=== PATIENT | female | born 1955 | race Caucasian/White ===

== ENCOUNTER 2022-05-17 11:05 | Inpatient (IN) | payer OTHER ==
[2022-05-17] MEDS ORDERED: FUROSEMIDE 20 MG/ 2ML VIAL ONE ×2 (13:12→21:02)
[2022-05-17] MEDS ORDERED: MORPHINE 2 MG/ML SYR ONE (13:12)
[2022-05-17] MEDS ORDERED: ONDANSETRON 4 MG/2 ML VIAL ONE (13:12)
[2022-05-17] MEDS ORDERED: NITROGLYCERIN/D5W 50 MG/250 ML BTL IV ONE (13:13)
[2022-05-17] MEDS ORDERED: ASPIRIN 81 MG CHEWABLE TABLET ONE (13:13)
--- NOTE | 2022-05-17 13:18 | RAD REPORT ---
EXAM DESCRIPTION: RAD - Chest Single View - 05/17/2022 12:55 pm CLINICAL HISTORY: CONGESTION COMPARISON: None TECHNIQUE: AP portable chest image was obtained 05/17/2022 12:55 pm . FINDINGS: Baseline study shows low lung volumes. Large bilateral pleural effusions are present. No f ocal dense consolidation in the upper lung [place]. Patient has bibasilar atelectasis due to the pleur al effusions but could have mass or infiltrate that is obscured by the large pleural fluid collection s. Heart size is unknown, obscured by the bilateral lower lung field opacification. No pneumothorax. No acute bony abnormality seen. No acute aortic findings suspected. IMPRESSION: Large bilateral pleural effusions with lung base atelectasis. Lung base mass or infiltra te can be masked. Vasculature is prominent. CHF/volume overload would be a primary consideration.
[2022-05-17 13:22] LABS: Protime INR 1.1
[2022-05-17 13:23] LABS: Absolute Lymphocytes (CBC) 1.7 K/uL (0.7-4.9); Hematocrit 48.3 % (36.0-45.0); Lymphocytes % 18.1 % (15.3-44.8); MPV 7.4 fL (7.6-11.3); RBC Red Blood Cell Count 5.25 M/uL (3.86-4.86)
[2022-05-17 13:27] LABS: SARS-CoV-2 Antigen Rapid Res Negative (Negative)
[2022-05-17 13:33] LABS: Urine Blood Trace-intact (Negative); Urine Glucose Trace (Negative); Urine Protein 2+ (Negative); Urine pH 6.5 (5.0-7.0)
[2022-05-17 13:42] LABS: Albumin 3.7 g/dL (3.4-5.0); Bilirubin Direct 0.2 mg/dL (0-0.2); Bilirubin Total 0.7 mg/dL (0.2-1.0); Magnesium 1.9 mg/dL (1.6-2.4); Potassium 4.2 mmol/L (3.5-5.1); Protein, Total 8.3 g/dL (6.4-8.2); Troponin High Sensitivity 38.4 pg/mL (<58.9)
--- NOTE | 2022-05-17 14:15 | ER ---
Nurse's Notes [facility] Name: Namrata Steinberg Age: 66 yrs Sex: Female : 1955 Arrival Date: 05/17/2022 Time: 11:06 Bed 25 Private MD: Diagnosis: Hypertensive emergency;Unspecified combined systolic (congestive) and diastolic (congestive) heart failure Presentation: 05/17 12:26 Chief complaint: Patient states: she hasn't been able to sleep in approx 30 hours. ap3 patient also complains of nausea and shortness of breath. patient denies being around anyone sick. patient is also having some swelling in her taylor lower exterminites. Coronavirus screen: Client presents with at least one sign or symptom that may indicate coronavirus-19. Ebola Screen: No symptoms or risks identified at this time. Initial Sepsis Screen: Does the patient meet any 2 criteria? HR > 90 bpm. Does the patient have a suspected source of infection? No. Patient's initial sepsis screen is negative. Risk Assessment: Do you want to hurt yourself or someone else? Patient reports no desire to harm self or others. Onset of symptoms was May 15, 2022. 12:26 Method Of Arrival: Ambulatory ap3 12:26 Acuity: SANDOVAL 2 ap3 Triage Assessment: 12:31 General: Appears distressed, Behavior is calm, cooperative. Pain:. Respiratory: Reports ap3 shortness of breath Onset: The symptoms/episode began/occurred gradually, the patient has moderate shortness of breath. 12:32 Musculoskeletal: Swelling present in right foot and left foot. ap3 Historical: - Allergies: 12:30 No Known Allergies; ap3 - Home Meds: 12:30 None [Active]; ap3 - PMHx: 12:30 Hypertensive disorder; ap3 - Immunization history:: Client reports having NOT received the Covid vaccine. - Social history:: Smoking status: Patient/guardian denies using tobacco. Screenin:45 Abuse screen: Denies threats or abuse. Denies injuries from another. Nutritional hb screening: No deficits noted. Tuberculosis screening: No symptoms or risk factors identified. Fall Risk Total Piper Fall Scale indicates Low Risk Score (25-44 pts). Fall prevention measures have been instituted. Side Rails Up X 2 Frequent Obs/Assesments occuring Family Present and informed to notify staff if they need to leave bedside As available Patient and Family Educated on Fall Prevention Program and strategies. Assessment: 13:02 General: Appears distressed, Behavior is cooperative, anxious, restless. Neuro: Level hb of Consciousness is awake, alert, obeys commands, Oriented to person, place, time, situation. Cardiovascular: Patient's skin is warm and dry. Edema 3+ BLEs Rhythm is sinus tachycardia. Respiratory: Reports shortness of breath at rest on exertion Respiratory effort is labored, Respiratory pattern is tachypnea. GI: No signs and/or symptoms were reported involving the gastrointestinal system. : No signs and/or symptoms were reported regarding the genitourinary system. EENT: No signs and/or symptoms were reported regarding the EENT system. Derm: Skin is pink, warm \T\ dry. Musculoskeletal: No signs and/or symptoms reported regarding the musculoskeletal system. 14:38 Reassessment: Patient and/or family updated on plan of care and expected duration. Pain hb level reassessed. Patient is alert, oriented x 3, equal unlabored respirations, skin warm/dry/pink. 15:33 Reassessment: Patient appears in no apparent distress at this time. No changes from hb previously documented assessment. Patient and/or family updated on plan of care and expected duration. Pain level reassessed. Patient states symptoms have improved. 16:53 Reassessment: Patient appears in no apparent distress at this time. Patient and/or hb family updated on plan of care and expected duration. Pain level reassessed. Patient is alert, oriented x 3, equal unlabored respirations, skin warm/dry/pink. 17:45 Reassessment: Patient appears in no apparent distress at this time. Patient and/or hb family updated on plan of care and expected duration. Pain level reassessed. Patient is alert, oriented x 3, equal unlabored respirations, skin warm/dry/pink. 18:32 Reassessment: Patient appears in no apparent distress at this time. Patient and/or hb family updated on plan of care and expected duration. Pain level reassessed. Patient is alert, oriented x 3, equal unlabored respirations, skin warm/dry/pink. Patient denies pain at this time. Patient states symptoms have improved. Vital Signs: 12:26 BP 206 / 107; Pulse 105; Resp 18; Temp 97.9; Pulse Ox 85% on R/A; Weight 77.11 kg; ap3 13:30 BP 181 / 104; Pulse 104; Resp 19; Pulse Ox 98% on 3 lpm NC; hb 14:00 BP 168 / 92; Pulse 102; Resp 25; Pulse Ox 95% on 3 lpm NC; hb 14:16 BP 160 / 85; Pulse 94; Resp 26; Pulse Ox 96% on 3 lpm NC; hb 14:20 BP 146 / 81; Pulse 94; Resp 26; Pulse Ox 96% on 3 lpm NC; hb 14:37 BP 142 / 74; Pulse 90; Resp 19; Pulse Ox 94% on 3 lpm NC; hb 14:38 BP 142 / 74; Pulse 89; hb 15:07 BP 115 / 67; Pulse 87; Resp 17; Pulse Ox 96% on 3 lpm NC; hb 15:33 BP 148 / 86; Pulse 81; Resp 25; Pulse Ox 97% on 3 lpm NC; hb 15:53 BP 164 / 82; Pulse 81; Resp 19; Pulse Ox 97% on 3 lpm NC; hb 16:15 BP 156 / 79; Pulse 78; Resp 22; Pulse Ox 95% on 3 lpm NC; hb 16:45 BP 159 / 84; Pulse 92; Resp 23; Pulse Ox 93% on 3 lpm NC; hb 17:15 BP 168 / 95; Pulse 94; Resp 23; Pulse Ox 96% on 3 lpm NC; hb 17:45 BP 169 / 86; Pulse 95; Resp 23; Pulse Ox 95% on 3 lpm NC; hb 18:30 BP 157 / 81; Pulse 86; Resp 24; Pulse Ox 96% on 3 lpm NC; hb 19:00 BP 155 / 83; Pulse 95; Resp 23; Pulse Ox 95% on 3 lpm NC; hb 12:26 patient was then placed on 3liters nasal canula to bring her oxygen up. patient's SpO2 ap3 recovered to 98% ED Course: 11:06 Patient arrived in ED. as 12:12 Meghan Ferrell FNP-C is PHCP. snw 12:12 Rodolfo Pabon MD is Attending Physician. snw 12:28 Triage completed. ap3 12:57 XRAY Chest (1 view) In Process Unspecified. EDMS 13:10 Regine Villatoro, RN is Primary Nurse. hb 13:15 Inserted saline lock: 20 gauge in right antecubital area, using aseptic technique. hb Blood collected. 13:19 Inserted saline lock: 22 gauge in left hand, using aseptic technique. hb 13:30 Velasquez cath inserted, using sterile technique, 16 Fr., by ED staff, balloon inflated, to hb gravity drainage, urine specimen collected. 13:34 Basic Metabolic Panel Sent. hb 13:34 LFT's Sent. hb 13:34 Magnesium Sent. hb 13:34 NT PRO-BNP Sent. hb 13:34 Troponin HS Sent. hb 14:12 Davon Smith MD is Hospitalizing Provider. snw 14:18 Patient has correct armband on for positive identification. hb 19:36 No provider procedures requiring assistance completed. Patient admitted, IV remains in hb place. Administered Medications: 13:10 Drug: Lasix (furosemide) 20 mg Route: IVP; Site: right antecubital; hb 13:10 Drug: morphine 2 mg Route: IVP; Infused Over: 4 mins; Site: right antecubital; hb 13:10 Drug: Zofran (Ondansetron) 2 mg Route: IVP; Site: right antecubital; hb 13:11 Drug: Nitro Drip 5 mcg/min - (Nitroglycerin 50 mg, D5W 250 ml) Route: IV; Rate: 2 hb mcg/min; Site: left hand; 14:00 Follow up: Rate change 15 mcg/min hb 14:37 Follow up: BP 142 / 74; Pulse 90 bpm; Resp 19 bpm; Pulse Ox 94% 3 lpm Nasal Cannula; hb Rate change 10 mcg/min 15:10 Follow up: Rate change 5 mcg/min hb 13:34 Drug: Aspirin Chewable Tablet 324 mg Route: PO; hb 18:38 Drug: Lovenox (enoxaparin) 40 mg Route: Sub-Q; Site: abdomen; hb Medication: 14:18 VIS not applicable for this client. hb Output: 14:28 Urine: 1200ml (Velasquez); Total: 1200ml. hb Outcome: 14:14 Decision to Hospitalize by Provider. snw 19:36 Admitted to ER Hold. [facility] hb 19:36 Condition: stable 19:36 Instructed on the need for admit, Demonstrated understanding of instructions. 05/18 16:28 Patient left the ED. iw Signatures: Dispatcher Nevigo, Meghan, CHIEF OF [employer]-C CHIEF OF [employer]-Csnw Radha Ziegler as Amy Beaver RN RN Regine Villatoro RN RN Britt Peterson RN RN ap3 Corrections: (The following items were deleted from the chart) 05/17 12:32 12:26 Chief complaint: Patient states: she hasn't been able to sleep in approx 30 ap3 hours. patient also complains of nausea and shortness of breath. patient denies being around anyone sick ap3
--- NOTE | 2022-05-17 14:15 | EDPHYS ---
Physician Documentation [facility] Name: Namrata Steinberg Age: 66 yrs Sex: Female : 1955 Arrival Date: 05/17/2022 Time: 11:06 Bed 25 Private MD: ED Physician Rodolfo Pabon HPI: 05/17 12:40 This 66 yrs old Female presents to ER via Ambulatory with complaints of Shortness Of snw Breath, Feet Swelling, Nausea. 12:40 The patient has shortness of breath at rest. Onset: The symptoms/episode began/occurred snw suddenly, 2 day(s) ago, and became worse. Duration: The symptoms are continuous, and are steadily getting worse. The patient's shortness of breath is aggravated by exertion, light activity, supine position, is alleviated by nothing. Associated signs and symptoms: Pertinent positives: swelling. Severity of symptoms: At their worst the symptoms were severe in the emergency department the symptoms are unchanged. The patient has not experienced similar symptoms in the past. The patient has not recently seen a physician, and does not have an established primary care provider, just moved [facility]. pt with no medical history, no meds. Historical: - Allergies: 12:30 No Known Allergies; ap3 - Home Meds: 12:30 None [Active]; ap3 - PMHx: 12:30 Hypertensive disorder; ap3 - Immunization history:: Client reports having NOT received the Covid vaccine. - Social history:: Smoking status: Patient/guardian denies using tobacco. ROS: 14:16 Eyes: Negative for injury, pain, redness, and discharge, ENT: Negative for injury, snw pain, and discharge, Neck: Negative for injury, pain, and swelling, Cardiovascular: Negative for chest pain, palpitations, and edema. 14:16 Back: Negative for injury and pain, : Negative for injury, bleeding, discharge, and swelling, MS/Extremity: Negative for injury and deformity, lower extremity edema Skin: Negative for injury, rash, and discoloration, Neuro: Negative for headache, weakness, numbness, tingling, and seizure. 14:16 Constitutional: Positive for fatigue, poor PO intake, insomnia, shortness of breath. 14:16 Respiratory: Positive for shortness of breath. 14:16 Abdomen/GI: Positive for nausea, abdominal distension. Exam: 12:39 Constitutional: This is a well developed, well nourished patient who is awake, alert, snw and in no acute distress. Head/Face: Normocephalic, atraumatic. Eyes: Pupils equal round and reactive to light, extra-ocular motions intact. Lids and lashes normal. Conjunctiva and sclera are non-icteric and not injected. Cornea within normal limits. Periorbital areas with no swelling, redness, or edema. ENT: Nares patent. No nasal discharge, no septal abnormalities noted. Tympanic membranes are normal and external auditory canals are clear. Oropharynx with no redness, swelling, or masses, exudates, or evidence of obstruction, uvula midline. Mucous membranes moist. Neck: Trachea midline, no thyromegaly or masses palpated, and no cervical lymphadenopathy. Supple, full range of motion without nuchal rigidity, or vertebral point tenderness. No Meningismus. Chest/axilla: Normal chest wall appearance and motion. Nontender with no deformity. No lesions are appreciated. 12:39 Back: No spinal tenderness. No costovertebral tenderness. Full range of motion. Skin: Warm, dry with normal turgor. Normal color with no rashes, no lesions, and no evidence of cellulitis. MS/ Extremity: Pulses equal, no cyanosis. Neurovascular intact. Full, normal range of motion. Neuro: Awake and alert, GCS 15, oriented to person, place, time, and situation. Cranial nerves II-XII grossly intact. Motor strength 5/5 in all extremities. Sensory grossly intact. Cerebellar exam normal. Normal gait. Psych: Awake, alert, with orientation to person, place and time. Behavior, mood, and affect are within normal limits. 12:39 Cardiovascular: Rate: tachycardic, Rhythm: regular, Pulses: no pulse deficits are appreciated, Edema: 3+ edema to level of left ankle, left foot, left toes, right ankle, right foot and right toes. 12:39 Respiratory: mild respiratory distress is noted, Respirations: shallow respirations, tachypnea, Breath sounds: rales, that are mild, are located in both bases. 12:39 Abdomen/GI: Inspection: distension, Bowel sounds: diminished, in all quadrants, Palpation: mild abdominal tenderness, in the umbilical area. Vital Signs: 12:26 BP 206 / 107; Pulse 105; Resp 18; Temp 97.9; Pulse Ox 85% on R/A; Weight 77.11 kg; ap3 13:30 BP 181 / 104; Pulse 104; Resp 19; Pulse Ox 98% on 3 lpm NC; hb 14:00 BP 168 / 92; Pulse 102; Resp 25; Pulse Ox 95% on 3 lpm NC; hb 14:16 BP 160 / 85; Pulse 94; Resp 26; Pulse Ox 96% on 3 lpm NC; hb 14:20 BP 146 / 81; Pulse 94; Resp 26; Pulse Ox 96% on 3 lpm NC; hb 14:37 BP 142 / 74; Pulse 90; Resp 19; Pulse Ox 94% on 3 lpm NC; hb 14:38 BP 142 / 74; Pulse 89; hb 15:07 BP 115 / 67; Pulse 87; Resp 17; Pulse Ox 96% on 3 lpm NC; hb 15:33 BP 148 / 86; Pulse 81; Resp 25; Pulse Ox 97% on 3 lpm NC; hb 15:53 BP 164 / 82; Pulse 81; Resp 19; Pulse Ox 97% on 3 lpm NC; hb 16:15 BP 156 / 79; Pulse 78; Resp 22; Pulse Ox 95% on 3 lpm NC; hb 16:45 BP 159 / 84; Pulse 92; Resp 23; Pulse Ox 93% on 3 lpm NC; hb 17:15 BP 168 / 95; Pulse 94; Resp 23; Pulse Ox 96% on 3 lpm NC; hb 17:45 BP 169 / 86; Pulse 95; Resp 23; Pulse Ox 95% on 3 lpm NC; hb 18:30 BP 157 / 81; Pulse 86; Resp 24; Pulse Ox 96% on 3 lpm NC; hb 19:00 BP 155 / 83; Pulse 95; Resp 23; Pulse Ox 95% on 3 lpm NC; hb 12:26 patient was then placed on 3liters nasal canula to bring her oxygen up. patient's SpO2 ap3 recovered to 98% MDM: 12:29 Patient medically screened. snw 14:15 Data reviewed: vital signs, nurses notes, lab test result(s), EKG, radiologic studies. snw Response to treatment: the patient's symptoms have mildly improved after treatment. Physician consultation: Davon Smith MD was contacted at 14:15, and will see patient shortly. ED course: will increase nitro drip to 5mcg/min. 05/17 12:38 Order name: Basic Metabolic Panel; Complete Time: 13:43 snw 05/17 12:38 Order name: CBC with Diff; Complete Time: 13:25 snw 05/17 12:38 Order name: LFT's; Complete Time: 13:43 snw 05/17 12:38 Order name: Magnesium; Complete Time: 13:43 snw 05/17 12:38 Order name: NT PRO-BNP; Complete Time: 13:43 snw 05/17 12:38 Order name: PT-INR; Complete Time: 13:22 snw 05/17 12:38 Order name: Troponin HS; Complete Time: 13:43 snw 05/17 12:38 Order name: SARS RAPID; Complete Time: 13:30 snw 05/17 13:33 Order name: Urine Dipstick-Ancillary; Complete Time: 13:33 EDMS 05/17 15:10 Order name: NT PRO-BNP; Complete Time: 07:48 EDMS 05/17 15:10 Order name: T4 Free; Complete Time: 07:48 EDMS 05/17 15:10 Order name: Thyroid Stimulating Hormone; Complete Time: 07:48 EDMS 05/17 15:10 Order name: Basic Metabolic Panel EDMS 05/17 15:10 Order name: Basic Metabolic Panel EDMS 05/17 15:10 Order name: CBC with Automated Diff EDMS 05/17 15:10 Order name: CBC with Automated Diff; Complete Time: 07:48 EDMS 05/17 15:10 Order name: Comprehensive Metabolic Panel EDMS 05/17 15:10 Order name: Comprehensive Metabolic Panel; Complete Time: 07:48 EDMS 05/17 15:10 Order name: Creatine Phosphokinase EDMS 05/17 15:10 Order name: Creatine Phosphokinase EDMS 05/17 15:12 Order name: Creatine Phosphokinase; Complete Time: 07:48 EDMS 05/17 15:12 Order name: Creatine Phosphokinase; Complete Time: 07:48 EDMS 05/17 15:12 Order name: Lipid Profile EDMS 05/17 15:12 Order name: Lipid Profile; Complete Time: 07:48 EDMS 05/17 15:12 Order name: Magnesium EDMS 05/17 15:12 Order name: Magnesium; Complete Time: 07:48 EDMS 05/17 15:12 Order name: Phosphorus EDMS 05/17 15:12 Order name: Phosphorus; Complete Time: 07:48 EDMS 05/17 15:12 Order name: Protime (+INR) EDMS 05/17 15:12 Order name: Protime (+INR); Complete Time: 07:48 EDMS 05/17 12:38 Order name: XRAY Chest (1 view); Complete Time: 13:21 snw 05/17 12:38 Order name: EKG; Complete Time: 12:38 snw 05/17 12:38 Order name: Cardiac monitoring; Complete Time: 12:43 snw 05/17 12:38 Order name: EKG - Nurse/Tech; Complete Time: 13:34 snw 05/17 12:38 Order name: IV Saline Lock; Complete Time: 13:34 snw 05/17 12:38 Order name: Labs collected and sent; Complete Time: 13:34 snw 05/17 12:38 Order name: O2 Per Protocol; Complete Time: 12:43 snw 05/17 12:38 Order name: O2 Sat Monitoring; Complete Time: 12:43 snw 05/17 12:38 Order name: Echo w/ Doppler snw 05/17 12:38 Order name: Velasquez; Complete Time: 13:33 snw 05/17 14:18 Order name: Misc. Order: please increase NTG drip to 5mcg/min; Complete Time: 14:34 snw 05/17 15:10 Order name: CONS Physician Consult EDMS 05/17 15:10 Order name: Heart Healthy EDMS 05/17 15:12 Order name: PTT, Activated Partial Thromb EDMS 05/17 15:12 Order name: PTT, Activated Partial Thromb; Complete Time: 07:48 EDMS 05/17 19:27 Order name: Troponin High Sensitivity; Complete Time: 19:30 EDMS 05/18 07:24 Order name: Troponin High Sensitivity; Complete Time: 07:48 EDMS 05/18 08:43 Order name: RAD; Complete Time: 08:43 EDMS Administered Medications: 13:10 Drug: Lasix (furosemide) 20 mg Route: IVP; Site: right antecubital; hb 13:10 Drug: morphine 2 mg Route: IVP; Infused Over: 4 mins; Site: right antecubital; hb 13:10 Drug: Zofran (Ondansetron) 2 mg Route: IVP; Site: right antecubital; hb 13:11 Drug: Nitro Drip 5 mcg/min - (Nitroglycerin 50 mg, D5W 250 ml) Route: IV; Rate: 2 hb mcg/min; Site: left hand; 14:00 Follow up: Rate change 15 mcg/min hb 14:37 Follow up: BP 142 / 74; Pulse 90 bpm; Resp 19 bpm; Pulse Ox 94% 3 lpm Nasal Cannula; hb Rate change 10 mcg/min 15:10 Follow up: Rate change 5 mcg/min hb 13:34 Drug: Aspirin Chewable Tablet 324 mg Route: PO; hb 18:38 Drug: Lovenox (enoxaparin) 40 mg Route: Sub-Q; Site: abdomen; hb Disposition: 20:30 Critical Care:. snw 05/18 17:28 Co-signature as Attending Physician, Rodolfo Pabon MD I agree with the assessment and rt plan of care. Disposition Summary: 05/17/22 14:14 Hospitalization Ordered Hospitalization Status: Inpatient Admission snw Provider: Davon Smith snw Condition: Serious snw Problem: new snw Symptoms: are unchanged snw Bed/Room Type: Standard snw Location: Telemetry/MedSurg (Inpatient)(05/18/22 15:17) Room Assignment: 230(05/18/22 15:17) Diagnosis - Hypertensive emergency snw - Unspecified combined systolic (congestive) and diastolic (congestive) heart failure snw Forms: - Medication Reconciliation Form snw - SBAR form snw Critical care time excluding procedures: 05/17 20:30 Critical care time: Bedside Care: 15 minutes, Consultation: 15 minutes, Family snw Intervention: 10 minutes. Total time: 40 minutes Signatures: Dispatcher [employer] Meghan Alberts FNP-C BEHAVIORAL HEALTH TECH-Csnw Mirtha Portillo RN RN cg Baxter, Heather, RN RN hb Prokisch, Amanda, RN RN ap3 Botello, Elizabeth eb [place]king[place], Ryan, MD MD rt Corrections: (The following items were deleted from the chart) 19:21 14:14 Intensive Care Unit snw cg 19:21 14:14 snw cg 05/18 15:17 05/17 19:21 [facility] ER HOLD cg eb 05/18 15:17 05/17 19:21 ERHOLD- cg eb
[2022-05-17] MEDS ORDERED: ONDANSETRON 4 MG/2 ML VIAL IV PRN (15:00)
[2022-05-17] MEDS ORDERED: NITROGLYCERIN/D5W 50 MG/250 ML BTL IV SCH (15:00)
[2022-05-17] MEDS: ENOXAPARIN 40 MG/0.4 ML SQ SCH (16:00)
[2022-05-17] MEDS: FUROSEMIDE 20 MG/ 2ML VIAL IV SCH (17:00)
--- NOTE | 2022-05-17 18:00 | P.HP ---
Certification for Inpatient Patient admitted to: Inpatient With expected LOS: >2 Midnights Practitioner: I am a practitioner with admitting privileges, knowledge of patient current condition, hospital course, and medical plan of care. Services: Services provided to patient in accordance with Admission requirements found in Title 42 Section 412.3 of the Code of Federal Regulations Patient History Date of Service: 05/17/22 Reason for admission: HTN, pulm edema History of Present Illness: 66yo F, PMH: HTN Presents to ED due to ~2 days of progressively worsening shortness of breath. Associated with leg edema, orthopnea, dyspnea on exertion. Denies chest pain, fever, nausea/vomiting. No recent illness, no prior cardiac history. She was diagnosed with HTN and prescribed medication ~8yrs ago and stopped taking it on her own. Has not seen a physician in 6 years. In the ED, she was noted to be in respiratory distress, hypoxic, CXR: significant b/l pulmonary edema, hypertensive to 200/100, and 2+ b/l lower extremity edema. She was started on a nitro drip and given 20mg IV lasix, with improvement of her BP and 2+ liters of urine out already. She reports feeling better. Allergies No Known Allergies Allergy (Unverified 05/17/22 14:57) Home Medications: NK [No Home Meds] 05/17/22 - Past Medical/Surgical History -: HTN Past Surgical History: Patient denies surgical history - Family History Mother -: Hypertension, Diabetes - Social History Smoking Status: Former smoker Alcohol use: Yes Place of Residence: Home Review of Systems 10-point ROS is otherwise unremarkable Respiratory: Shortness of Breath, SOB with Excertion Cardiovascular: Orthopnea, Edema Gastrointestinal: Distention Physical Examination - Physical Exam General: Alert, Oriented x3, Mild distress HEENT: EOMI, Sclerae nonicteric Neck: Supple, No LAD Respiratory: Diminished, Crackles/rales Cardiovascular: Edema (2+) Gastrointestinal: Soft and benign, Non-distended, No tenderness Musculoskeletal: No erythema, No tenderness Integumentary: No rashes, No significant lesion Neurological: Normal speech, Normal strength at 5/5 x4 extr, Normal affect Urinary: Velasquez catheter (placed in ED) - Studies Laboratory Data (last 24 hrs) 05/17/22 13:07: PT 12.1, INR 1.10 05/17/22 13:07: WBC 9.10, Hgb 16.1 H, Hct 48.3 H, Plt Count 264 05/17/22 13:07: Sodium 136, Potassium 4.2, BUN 16, Creatinine 0.79, Glucose 225 H, Magnesium 1.9, Total Bilirubin 0.7, AST 20, ALT 33, Alkaline Phosphatase 90 Assessment and Plan - Advance Directives Does patient have a Living Will: No Does patient have a Durable POA for Healthcare: No Physician Review Additional Text: Problem List Malignant hypertension with pulmonary edema h/o HTN b/l pulm edema/effusions on CXR BP up to 200/100, continue nitro drip diuresed >3L urine with 20mg IV lasix, continue at 20mg BID monitor electrolytes admit to ICU for close monitoring / nitro drip Cardiology consulted echo ordered obtained in ED already denies recent chest pain / pressure, no palpitations trend troponin suspect uncontrolled HTN lead to flash pulm edema; r/o [place] VTE: lovenox Code: DNR Dispo: home, ~3-4 days Time Spent Managing Pts Care (In Minutes): 70
[2022-05-17] MEDS ORDERED: ENOXAPARIN 40 MG/0.4 ML SQ ONE (18:39)
[2022-05-17 19:39] VITALS: BMI 26.5
[2022-05-18 07:06] LABS: Absolute Lymphocytes (CBC) 1.5 K/uL (0.7-4.9); Hematocrit 42.8 % (36.0-45.0); Lymphocytes % 21.1 % (15.3-44.8); MCV 91.7 fL (80-100); MPV 7.1 fL (7.6-11.3); RBC Red Blood Cell Count 4.67 M/uL (3.86-4.86)
[2022-05-18 07:20] LABS: Protime INR 1.11
[2022-05-18 07:31] LABS: Albumin 3.3 g/dL (3.4-5.0); Bilirubin Total 0.9 mg/dL (0.2-1.0); Magnesium 1.9 mg/dL (1.6-2.4); Phosphorus 3.9 mg/dL (2.5-4.9); Protein, Total 7.5 g/dL (6.4-8.2); Thyroid Stimulating Hormone 5.04 uIU/mL (0.358-3.740)
--- NOTE | 2022-05-18 08:42 | RAD REPORT ---
EXAM DESCRIPTION: RAD - Chest Single View - 05/18/2022 8:34 am CLINICAL HISTORY: f/u pulm edema/effusions COMPARISON: <Comparisons> FINDINGS: Lines: None. Lungs: Basilar airspace disease. Pleural: Layering bilateral pleural effusions better likely moderate in size. Cardiac: Cardiomegaly. Mediastinum: Within normal limits. Bones: No acute fractures. Other: None IMPRESSION: Moderate bilateral pleural effusions and likely underlying atelectasis. This may be seco ndary to pulmonary edema.
[2022-05-18] MEDS ORDERED: FUROSEMIDE 20 MG/ 2ML VIAL ONE (08:43)
[2022-05-18] MEDS: FUROSEMIDE 20 MG/ 2ML VIAL IV SCH ×2 (08:45→17:00)
[2022-05-18] MEDS: ENOXAPARIN 40 MG/0.4 ML SQ SCH (08:46)
[2022-05-18] MEDS ORDERED: ENOXAPARIN 40 MG/0.4 ML SQ ONE (08:55)
[2022-05-18] MEDS: lisinopriL 10 MG TAB PO SCH (14:30)
[2022-05-18] MEDS ORDERED: FUROSEMIDE 20 MG/ 2ML VIAL IV ONE (17:42)
[2022-05-18] MEDS ORDERED: HYDRALAZINE HCL 20 MG/ML VIAL IV PRN (17:42)
[2022-05-18] MEDS: AMLODIPINE 5 MG TAB PO SCH (17:45)
--- NOTE | 2022-05-18 19:02 | RAD REPORT ---
EXAM DESCRIPTION: CT - Thorax Wo Con - 05/18/2022 6:40 pm CLINICAL HISTORY: eval pleural effusions COMPARISON: <Comparisons> FINDINGS: Chest Wall: No suspicious thyroid nodules or pathologic lymphadenopathy. Lungs: Atelectasis as a result of the effusions. Chronic scarring present within the lingula and righ t middle lobe. Pleura: Moderate right greater than left pleural effusions. Mediastinum/sae: No pathologic lymphadenopathy. Pulmonary arteries/Aorta: Limited evaluation without contrast. No aortic aneurysm. Heart: No significant pericardial effusion. Mild cardiomegaly. Mild coronary artery calcifications. Upper abdomen: No acute abnormality. Bones: No acute abnormality. All CT scans are performed using dose optimization technique as appropriate and may include automated exposure control or mA/KV adjustment according to patient size. IMPRESSION: Moderate right greater than left pleural effusions and underlying atelectasis. No other acute process identified.
--- NOTE | 2022-05-18 21:49 | P.PN ---
Date of Service: 05/18/22 Subjective: slight improvement in breathing still requiring oxygen supplementation improvement of swelling pablo remains in place, 3+L out ROS: A complete review of systems was performed and is negative except as mentioned above Physical Exam: Gen: NAD, AOx3 HEENT: normal conjunctiva, sclera anicteric CV: regular rate & rhythm, 1+ b/l lower extremity edema Pulm: mild labored respirations on 2L NC, b/l crackles, diminished at bases bilaterally Abd: soft, non-tender, non-distended Skin: no rashes, no lesions Neuro: normal speech, normal affect, moves all extremities pablo in place vitals reviewed Problem List Malignant hypertension with pulmonary edema and effusions h/o HTN b/l pulm edema/effusions on CXR initially placed on nitro drip due to BP 200/100 diuresed >3L urine with 20mg IV lasix off nitro drip since ~2 am 05/18 increase lasix to 40mg BID monitor electrolytes / renal function downgrade to telemetry Cardiology consulted will likely need ischemic eval prior to discharge echo ordered obtained in ED already denies recent chest pain / pressure, no palpitations trend troponin suspect uncontrolled HTN lead to flash pulm edema; r/o [place] likely new onset CHF VTE: lovenox Code: DNR Dispo: home, ~3 days Time Spent Managing Pts Care (In Minutes): 35
--- NOTE | 2022-05-18 22:02 | CON ---
Date of Consultation: 05/18/2022 Reason For Consultation: Shortness of breath and lower extremity edema. History Of Present Illness: This 66-year-old female presented to the emergency room with significant shortness of breath, lower extremity edema, and orthopnea. Denies having any chest pain. Said she will have some lower extremity swelling; however, it has become significantly worse lately and starte d to have the difficulty breathing. Her only past medical history is hypertension. No other medical history. Denies having any chest pain. Past Medical History: Hypertension. Medications: Refer to reconciliation sheet for detailed list. Allergies: NO KNOWN DRUG ALLERGIES. Family History: No premature coronary artery disease or cancer. Social History: She does not smoke, but she drinks a mixed drink on daily basis. Review of Systems: All systems were reviewed and they were negative except as mentioned in HPI. Physical Examination: Vital Signs: Temperature is 97.3, heart rate 93, breathing 16, blood pressure is 187/81, and saturat ing 96%. When she arrived to the emergency room, her blood pressure was 156/86. General: A pleasant middle-aged female, no apparent distress. Head And Neck: Pupils are equal and reactive to light. Intact eye movements. Mild JVD elevation. Lungs: Some crackles in both bases. No accessory muscle use or muscle retraction. Heart: Regular rate and rhythm with S3 gallop. Abdomen: Soft, nontender. Bowel sounds positive. No organomegaly. No masses or hernia. No rigidi ty or rebound. Extremities: She has 2+ pitting edema bilaterally. No clubbing or cyanosis. Intact pulses. Skin: No rash. Neurologic: Alert, awake, and oriented x3. No acute focal deficits appreciated. Investigations: NT-proBNP is 3709. Troponins are negative. BUN is 10, creatinine 0.65. Hemoglobin is 14.5. Assessment/recommendation: 1.Acute congestive heart failure. On echo ejection fraction is 45% to 50%. No chest pain and tropo nins are negative. Continue IV Lasix and increase the dose to 40 mg twice a day and monitor BUN, cre atinine, and electrolytes. 2.Systolic heart failure. Ejection fraction is low. Troponins are negative. She will need ischemi a workup. We will plan for coronary angiogram on her early next week. 3.Hypertensive crisis, on lisinopril. Increase the Lasix as above and adjust the dose of lisinopril as needed. SR/MODL Voice ID: [id number] Report ID: [id number]
--- NOTE | 2022-05-19 07:15 | P.PN ---
Date of Service: 05/19/22 Subjective: improving down to 1L NC, mild SOB no acute events overnight swelling improving good UOP no chest pain, no new symptoms ROS: A complete review of systems was performed and is negative except as mentioned above Physical Exam: Gen: NAD, AOx3 HEENT: normal conjunctiva, sclera anicteric, +JVD CV: regular rate & rhythm, 1+ b/l lower extremity edema Pulm: mild labored respirations on 1L NC, b/l crackles, diminished at bases bilaterally Abd: soft, non-tender, non-distended Neuro: normal speech, normal affect, moves all extremities pablo in place vitals reviewed Problem List Malignant hypertension with pulmonary edema and effusions acute hypoxemic respiratory failure secondary to acute CHF exacerbation (systolic) acute systolic CHF exacerbation, new onset h/o HTN b/l pulm edema/effusions on CXR required nitro drip for <24hrs, transitioned to PO lisinopril and norvasc initially received lasix IV 20mg BID, increased to 40mg BID on 05/18 Echo: EF: 45-50% diuresing well CT chest (05/18): moderate R pleural effusion, mild L pleural effusion Cardiology consulted recommend cardiac cath, likely Friday monitor electrolytes / renal function continue telemetry denies recent chest pain / pressure, no palpitations VTE: lovenox Code: DNR Dispo: home, ~3 days Time Spent Managing Pts Care (In Minutes): 35
[2022-05-19] MEDS: ENOXAPARIN 40 MG/0.4 ML SQ SCH (08:25)
[2022-05-19] MEDS: AMLODIPINE 5 MG TAB PO SCH (08:26)
[2022-05-19] MEDS: lisinopriL 10 MG TAB PO SCH (08:26)
[2022-05-19] MEDS: FUROSEMIDE 40 MG/4 ML VIAL IV SCH ×2 (08:26→16:39)
--- NOTE | 2022-05-19 18:06 | PN ---
Date of Progress Note: 05/19/2022 Subjective: Seen by bedside. She is doing clinically better, diuresing very well. No chest pain. She has shortness of breath and orthopnea, lower extremity edema. Rest of systems were reviewed, the y were negative. Review of Systems: Thee is no chest pain. She has shortness of breath, orthopnea, lower extremity edema. Rest of syste ms were reviewed, they were negative. Physical Examination: Vital Signs: Reviewed. Head and Neck: Pupils are equal, reactive to light. Intact eye movements. No JVD. No cervical lym phadenopathy. Neck is supple. Thyroid is not enlarged. Lungs: Decreased breathing sounds with faint crackles on both bases. No accessory muscle use or mus daren retraction. Heart: Regular rate and rhythm with S3 gallop. Abdomen: Soft, nontender. Bowel sounds positive. No organomegaly. No masses or hernia. No rigidi ty or rebound. Extremities: 1+ pitting edema bilaterally, improved comparing to yesterday. Neurologic: Alert, awake, oriented x3. No acute focal deficits appreciated. LYMPH NODES: No cervical or axillary lymphadenopathy. Investigations: Labs were reviewed. Her BUN is 10, creatinine 0.65, and troponins have been negativ e and hemoglobin 14.5. Assessment And Recommendation: [id number] systolic heart failure exacerbation. Her EF is 45%. She needs ischemia workup in the interim. Continue IV diuretics, and plan for a coronary angiogram early next week, maybe about Friday. Continue Lasix. Monitor BUN, creatinine, electrolytes, and the lisinopril was introduced. Also recommend to use low-dose beta-blo cker and titrate up as needed. SR/MODL Voice ID: [id number] Report ID: [id number]
--- NOTE | 2022-05-20 06:47 | ECHO ---
HEIGHT: 5 ft 7 in WEIGHT: 169 lb 10.24 oz DATE OF STUDY: 05/17/[address]: Meghan Engel [employer]-BC 2-DIMENSIONAL: YES M.MODE: YES DOPPLER: YES COLOR FLOW: YES TDS: YES PORTABLE: YES DEFINITY: BUBBLE STUDY: DIAGNOSIS: CONGESTIVE HEART FAILURE/ HYPERTENSION URGENCY CARDIAC HISTORY: CATHERIZATION: SURGERY: PROSTHETIC VALVE: PACEMAKER: MEASUREMENTS (cm) DIASTOLIC (NORMALS) SYSTOLIC (NORMALS) IVSd 1.2 (0.6-1.2) LA Diam 3.5 (1.9-4.0) LVEF 46% LVIDd 4.9 (3.5-5.7) LVIDs 3.8 (2.0-3.5) %FS 23% LVPWd 1.2 (0.6-1.2) Ao Diam 3.0 (2.0-3.7) 2 DIMENSIONAL ASSESSMENT: RIGHT ATRIUM: NORMAL LEFT ATRIUM: NORMAL RIGHT VENTRICLE: NORMAL LEFT VENTRICLE: MILDLY DEPRESSED EJECTION FRACTION TRICUSPID VALVE: NORMAL MITRAL VALVE: MILD MITRAL REGURGITATION PULMONIC VALVE: NORMAL AORTIC VALVE: NORMAL PERICARDIAL EFFUSION: TRACE AORTIC ROOT: NORMAL LEFT VENTRICULAR WALL MOTION: MILD GLOBAL HYPOKINESIS DOPPLER/COLOR FLOW: SEE BELOW COMMENTS: 1. MILDLY DEPRESSED LEFT VENTRICULAR EJECTION FRACTION 2. MILD GLOBAL HYPOKINESIS 3. MILD MITRAL REGURGITATION 4. LARGE PERICARDIAL EFFUSION 5. MODERATE DIASTOLIC DYSFUNCTION TECHNOLOGIST: TUAN CHAPIN
[2022-05-20] MEDS: AMLODIPINE 5 MG TAB PO SCH (08:04)
[2022-05-20] MEDS: METOPROLOL TAR 25 MG TAB PO SCH ×2 (08:04→16:45)
[2022-05-20] MEDS: FUROSEMIDE 40 MG/4 ML VIAL IV SCH ×2 (08:04→16:45)
[2022-05-20] MEDS: lisinopriL 10 MG TAB PO SCH (08:04)
[2022-05-20] MEDS: ENOXAPARIN 40 MG/0.4 ML SQ SCH (08:05)
[2022-05-20 09:08] LABS: Hematocrit 42.1 % (36.0-45.0); MCV 91.1 fL (80-100); MPV 7.3 fL (7.6-11.3); RBC Red Blood Cell Count 4.62 M/uL (3.86-4.86)
[2022-05-20 09:18] LABS: Albumin 2.9 g/dL (3.4-5.0); Bilirubin Total 0.7 mg/dL (0.2-1.0); Potassium 3.8 mmol/L (3.5-5.1); Protein, Total 6.8 g/dL (6.4-8.2)
--- NOTE | 2022-05-20 23:16 | P.PN ---
Date of Service: 05/20/22 Subjective: improving on 1L NC this morning, weaning to room air feels better ROS: A complete review of systems was performed and is negative except as mentioned above Physical Exam: Gen: NAD, AOx3 HEENT: normal conjunctiva, sclera anicteric, +JVD CV: regular rate & rhythm, trace to 1+ b/l lower extremity edema Pulm: mild labored respirations on RA, diminished at bases bilaterally Abd: soft, non-tender, non-distended Neuro: normal speech, normal affect, moves all extremities pablo in place vitals reviewed Problem List Malignant hypertension with pulmonary edema and effusions acute hypoxemic respiratory failure secondary to acute CHF exacerbation (systolic) acute systolic CHF exacerbation, new onset h/o HTN b/l pulm edema/effusions on CXR required nitro drip for <24hrs, transitioned to PO lisinopril and norvasc initially received lasix IV 20mg BID, increased to 40mg BID on 05/18 Echo: EF: 45-50% diuresing well CT chest (05/18): moderate R pleural effusion, mild L pleural effusion Cardiology consulted recommend cardiac cath, likely Friday monitor electrolytes / renal function continue telemetry denies recent chest pain / pressure, no palpitations VTE: lovenox Code: DNR Dispo: home, possibly tomorrow after cath vs Friday Time Spent Managing Pts Care (In Minutes): 25
[2022-05-21 04:45] LABS: Potassium 3.5 mmol/L (3.5-5.1)
[2022-05-21] MEDS: METOPROLOL TAR 25 MG TAB PO SCH ×2 (06:04→18:02)
[2022-05-21] MEDS ORDERED: POTASSIUM 25 MEQ EFFERV TAB PO ONE ×3 (06:16→17:00)
--- NOTE | 2022-05-21 07:45 | RAD REPORT ---
EXAM DESCRIPTION: RAD - Chest Single View - 05/21/2022 7:00 am CLINICAL HISTORY: f/u effusion / edema COMPARISON: CT chest May 18, portable chest May 18 TECHNIQUE: AP portable chest image was obtained 05/21/2022 7:00 am . FINDINGS: Lung volumes are normal. Bilateral pleural effusions are present very significantly reduce d in volume compared to the May 18 imaging. Lung base atelectasis is present. Baseline prominent interstitial lung pattern noted. A new or progressive lung parenchymal process is not seen. Heart size and vasculature are normal range and stable. No pneumothorax. IMPRESSION: Bilateral small to moderate pleural effusions substantially reduced in volume compared t o May 18 imaging.
[2022-05-21] MEDS: lisinopriL 10 MG TAB PO SCH (09:00)
[2022-05-21] MEDS: FUROSEMIDE 40 MG/4 ML VIAL IV SCH ×2 (09:00→18:02)
[2022-05-21] MEDS: ENOXAPARIN 40 MG/0.4 ML SQ SCH (09:00)
[2022-05-21] MEDS: AMLODIPINE 5 MG TAB PO SCH (09:01)
[2022-05-21 10:03] LABS: Arterial Blood Carboxyhemoglob 2.4 % (0-1.5); Blood Gas Oxyhemoglobin 75.7 % (94-97); Blood O2 Saturation 78.4 % (92-98.5)
[2022-05-21] MEDS ORDERED: LIDOCAINE 1% 20 ML MDV ONE (12:31)
[2022-05-21] MEDS ORDERED: HEPARIN 5000 UNIT/ML 1 ML VIAL ONE (12:32)
[2022-05-21] MEDS ORDERED: MIDAZOLAM HCL 2 MG/2 ML INJ ONE (12:32)
[2022-05-21] MEDS ORDERED: FENTANYL CITR 100 MCG/2 ML ONE (12:32)
[2022-05-21] MEDS ORDERED: NITROGLYCERIN 100 MCG/ML SYR (for cath lab use only) IV ONE (12:33)
[2022-05-21] MEDS ORDERED: VERAPAMIL HCL 10 MG/4 ML VIAL IV ONE (12:33)
[2022-05-21] MEDS ORDERED: HEPA 1000U/500MLS 2,000 UNIT/1,000 ML BAG IV ONE (12:33)
[2022-05-21] MEDS ORDERED: NITROGLYCERIN/D5W 25 MG/250 ML BTL IV ONE (12:33)
[2022-05-21] MEDS ORDERED: ATROPINE SULF 1 MG/10 ML SYR IV ONE (12:33)
[2022-05-21] MEDS ORDERED: NA CHLORIDE 0.9% 500 ML ONE (12:34)
[2022-05-21] MEDS ORDERED: HEPARIN 10,000 UNIT/10 ML VIAL IV ONE (12:34)
[2022-05-21] MEDS ORDERED: ASPIRIN 325 MG TAB ONE (13:09)
[2022-05-21] MEDS ORDERED: CLOPIDOGREL 75 MG TABLET ONE (13:09)
[2022-05-21] MEDS ORDERED: HEPA 1000U/500MLS 1,000 UNIT/500 ML BAG IV ONE (13:27)
--- NOTE | 2022-05-21 17:29 | P.PN ---
Subjective Date of Service: 05/21/22 Chief Complaint: HTN, pulm edema Patient denies any new complaint. She denies shortness of breath at rest. She denies any chest pain. She is stable on 2 L oxygen by nasal cannula. Physical Examination - Vital Signs Temperature: 97.0 F Blood Pressure: 149/66 Pulse: 70 Respirations: 16 Pulse Ox (%): 95 Assessment And Plan - Plan Diagnosis Malignant hypertension with pulmonary edema and effusions acute hypoxemic respiratory failure secondary to acute CHF exacerbation (systolic) acute systolic CHF exacerbation, new onset h/o HTN Pericardial effusion Plan: Status post nitro drip and then transitioned to PO lisinopril and norvasc initially received lasix IV 20mg BID, increased to 40mg BID on 05/18. Echo: EF: 45-50% Patient diuresed well Clinically improved. ABG shows mild CO2 retention. Elevated serum bicarb secondary to contraction alkalosis versus CO2 retention. Cardiology consulted, patient seen by Dr. Gonzalez Cardiac catheterization done today, awaiting result. monitor electrolytes / renal function with diuresis. Wean oxygen as tolerated. Activity as tolerated. Management of pericardial effusion per cardiology. VTE: lovenox Code: DNR Dispo:Home Time Spent Managing Pts Care (In Minutes): 27
--- NOTE | 2022-05-21 18:06 | OP ---
Date of Procedure: 05/21/2022 Surgeon: MARICHUY MARTINEZ Procedures Performed: 1.Selective coronary angiogram. 2.PCI of severe ostial to proximal left circumflex stenosis, used 3.0 x 20 mm Synergy drug-eluting s tent. Indication: Unstable angina and recent drop in ejection fraction. Access: Right radial artery 6-[place] closed with TR band; however, due to significant radial artery spasm, I then obtained the right femoral artery 6-[place], closed with 6-[place] Angio-Seal. Complications: None. Bleeding: Less than 10 mL. Anesthesia: Total sedation time was 55 minutes. Used fentanyl and Versed. Description Of Procedure: After risks, benefits, and alternatives were explained, the patient agreed to the procedure and signed informed consent. The patient was brought into the cardiac ablation lab oratory, prepped and draped in the usual sterile fashion. Then, we accessed right radial artery usin g pediatric micropuncture kit and then took a 5-[place] 4.0 catheter in the aortic root, engaged left main and right coronary artery, took standard views and then attempt to do PCI of the left circ through the radial artery; however, could not due to spasm, so I obtained an access in right femoral artery using micropuncture kit, ultrasound guidance of fluoroscopy and placed a 6-[place] sh eath and took a 6-[place] EBU3.5 guide into the aortic root, engaged left main and took short [place] wire into the left circumflex. The lesion was pre-dilated with a 3.0 balloon, expanded very well and then placed 3.0 x 20 mm Synergy drug-eluting stent. Before the procedure, heparin was given to assure ACT level above 250 and she was given 600 mg of Plavix and 325 mg aspirin and then post stent, final angiogram was satisfactory. Then, I removed the wire and the guide and the sheath, and placed a 6-[place] Angio-Seal with good closure and good hemostasis, and removed the radial sheath and place d TR band with good hemostasis. Findings: 1.Left main; large and normal. 2.LAD; moderate size with luminal irregularities, normal diagonal branches. 3.Left circumflex; large vessels as large as the LAD with proximal 80% stenosis, status post success ful PCI as above and then the luminal irregularities in the rest of the artery. 4.RCA; moderate size with long diffuse ostial to proximal stenosis that is 80%, which will be staged at a later time. Conclusion: 1.Severe left circumflex and RCA stenosis. 2.Status post successful PCI of left circumflex. Plan: 1.Aspirin, Plavix, high-dose statin. 2.Staged PCI of the proximal and ostial RCA using AL 0.75 guide by a groin access in 4 weeks. SR/MODL Voice ID: [id number] Report ID: [id number]
--- NOTE | 2022-05-21 20:48 | PN ---
Date of Progress Note: 05/21/2022 Subjective: Seen at bedside, doing clinically well and status post coronary angiogram today. Review of Systems: No chest pain. No significant shortness of breath. She has lower extremity edema still. No nausea, vomiting, diarrhea. No abdominal pain. No dysuria, polyuria, or urinary urgency. All other system s reviewed are negative. Physical Examination: Vital Signs: Reviewed. Head and Neck Exam: Pupils are equal, reactive to light. Intact eye movements. No JVD. No cervica l lymphadenopathy. Neck is supple. Thyroid is not enlarged. Lungs: Clear to auscultation bilaterally. No rhonchi, rales, or crackles. No accessory muscle use. Heart: Regular rate and rhythm. No extra sounds. Abdomen: Soft, nontender. Bowel sounds positive. No organomegaly. No masses or hernia. No rigidi ty or rebound. Extremities: Edema bilaterally 1+. No clubbing, cyanosis. Intact pulses. Skin: No rash. Neurologic: Alert, awake, oriented x3. No acute focal deficits appreciated. Investigations: BUN 12, creatinine 0.64. Assessment And Recommendation: 1.Acute systolic heart failure, responding well to diuretics. The patient can be switched now to or al Lasix 40 mg by mouth twice a day and observe her for another 24 hours. 2.Coronary artery disease, severe left circumflex, which is very large artery status post successful PCI today. Started on Plavix and aspirin to continue that and started on high-dose statin, Lipitor 40 mg q.h.s. 3.The patient still has residual significant RCA stenosis, which we will plan to do as an outpatient in 4-6 weeks. SR/MODL Voice ID: [id number] Report ID: [id number]
--- NOTE | 2022-05-21 20:48 | PN ---
Date of Progress Note: 05/20/2022 Subjective: Seen at the bedside. She is doing well. No chest pain. Has shortness of breath on exe rtion. Diuresing very well. Review of Systems: No chest pain, shortness of breath, orthopnea, lower extremity edema. No nausea, vomiting, diarrhea. No abdominal pain. No dysuria, polyuria, or urinary urgency. No skin rash, headache. All other s ystems reviewed, they are negative. Physical Examination: Vital Signs: Reviewed. Head and Neck: Pupils are equal, reactive to light. Intact eye movements. No JVD. No cervical lym phadenopathy. Neck: Supple. Thyroid is not enlarged. Lungs: Decreased breathing sounds with faint crackles in bases. No accessory muscle use or muscle r etraction. HEART: Regular rate and rhythm. No extra sounds. Abdomen: Soft, nontender. Bowel sounds positive. No organomegaly. No masses or hernia. No rigidi ty or rebound. Extremities: No clubbing, cyanosis. Positive edema. Neurologic: Alert, awake, oriented x3. No acute focal deficit appreciated. Investigations: BUN 12, creatinine 0.8. Assessment/recommendation: 1.Acute on chronic systolic heart failure exacerbation. Continue IV diuretics. Monitor BUN, creati nine, electrolytes. 2.Systolic heart failure, new onset, low ejection fraction. We will keep n.p.o. past midnight. Jordan n for coronary angiogram tomorrow. SR/MODL Voice ID: [id number] Report ID: [id number]
[2022-05-21] MEDS ORDERED: ATORVASTATIN 40 MG TAB PO SCH (21:00)
[2022-05-21] MEDS: SACUBITRIL/VALSARTAN 24/26 MG TAB PO SCH (21:27)
[2022-05-22 05:06] LABS: Potassium 3.6 mmol/L (3.5-5.1)
[2022-05-22] MEDS ORDERED: carvediloL 3.125 MG TAB PO SCH (06:00)
[2022-05-22] MEDS: METOPROLOL TAR 25 MG TAB PO SCH (06:41)
[2022-05-22] MEDS ORDERED: POTASSIUM 25 MEQ EFFERV TAB PO ONE (09:00)
[2022-05-22] MEDS ORDERED: ASPIRIN 81 MG CHEWABLE TABLET PO SCH (09:00)
[2022-05-22] MEDS ORDERED: FUROSEMIDE 40 MG TABLET PO SCH (09:00)
[2022-05-22] MEDS ORDERED: CLOPIDOGREL 75 MG TABLET PO SCH (09:00)
[2022-05-22] MEDS: SACUBITRIL/VALSARTAN 24/26 MG TAB PO SCH (10:00)
[2022-05-22] MEDS: ENOXAPARIN 40 MG/0.4 ML SQ SCH (10:01)
[2022-05-22] MEDS: AMLODIPINE 5 MG TAB PO SCH (10:01)
[2022-05-22 11:33] VITALS: O2SAT 96
--- NOTE | 2022-05-22 12:44 | P.DS ---
Admission Date: 05/17/22 Discharge Date: 05/22/22 Disposition: ROUTINE DISCHARGE Discharge Condition: FAIR Reason for Admission: HTN, pulm edema Brief History of Present Illness: 66yo F, PMH: HTN presented to ED due to ~2 days of progressively worsening shortness of breath. Associated with leg edema, orthopnea, dyspnea on exertion. Denies chest pain, fever, nausea/vomiting. No recent illness, no prior cardiac history. She was diagnosed with HTN and prescribed medication 8yrs ago and stopped taking it on her own. Has not seen a physician in 6 years. In the ED, she was noted to be in respiratory distress, hypoxic, CXR: significant b/l pulmonary edema, hypertensive to 200/100, and 2+ b/l lower extremity edema. She was started on a nitro drip and given 20mg IV lasix, with improvement of her BP and 2+ liters of urine out already. Patient admitted for further management. Hospital Course: Diagnosis Malignant hypertension with pulmonary edema and effusions acute hypoxemic respiratory failure secondary to acute CHF exacerbation (systolic) acute systolic heart failure, new onset h/o HTN Pleural effusion Patient admitted to the ICU on nitroglycerin drip. She was transitioned to oral lisinopril and Norvasc within 24 hours Patient treated for pulmonary edema and pleural effusion with IV Lasix Echo showed EF: 45-50% Patient diuresed well with IV Lasix and weaned off oxygen. Clinically improved. ABG shows mild CO2 retention. Elevated serum bicarb secondary to contraction alkalosis versus CO2 retention. Cardiology consulted, patient seen by Dr. Gonzalez Cardiac catheterization done and patient circumflex artery stented. Dr. Gonzalez reports multiple vessels disease and planning staged PCI. He recommended next PCI to be within 1 month. Patient has been ambulatory. She was started on Lipitor, metoprolol, aspirin and Plavix. Amlodipine replaced with Entresto. Patient's vitals have been stable. She is discharged to follow with Dr. Gonzalez as outpatient. She is also informed to follow-up with nephrology Dr. Nelson for monitoring for contraction alkalosis. Vital Signs/Physical Exam: Temp Pulse Resp BP Pulse Ox 97.1 F 71 16 123/58 L 95 05/22/22 08:00 05/22/22 10:01 05/22/22 08:00 05/22/22 10:01 05/22/22 08:00 General: Alert, In no apparent distress, Oriented x3 HEENT: Mucous membr. moist/pink Neck: JVD not distended Respiratory: Clear to auscultation bilaterally, Normal air movement Cardiovascular: No edema, Regular rate/rhythm, Normal S1 S2 Gastrointestinal: Soft and benign, Non-distended, No tenderness Musculoskeletal: No swelling Integumentary: No rashes Neurological: Normal strength at 5/5 x4 extr Laboratory Data at Discharge: WBC 7.10 K/uL (4.3-10.9) 05/20/22 08:50 Hgb 14.2 g/dL (12.0-15.0) 05/20/22 08:50 Hct 42.1 % (36.0-45.0) 05/20/22 08:50 Plt Count 208 K/uL (152-406) 05/20/22 08:50 PT 12.2 SECONDS (9.5-12.5) 05/18/22 06:53 INR 1.11 05/18/22 06:53 APTT 30.9 SECONDS (24.3-36.9) 05/18/22 06:53 Sodium 136 mmol/L (136-145) 05/22/22 03:58 Potassium 3.6 mmol/L (3.5-5.1) 05/22/22 03:58 BUN 15 mg/dL (7-18) 05/22/22 03:58 Creatinine 0.75 mg/dL (0.55-1.02) 05/22/22 03:58 Glucose 174 mg/dL (74-106) H 05/22/22 03:58 Phosphorus 3.9 mg/dL (2.5-4.9) 05/18/22 06:53 Magnesium 2.0 mg/dL (1.6-2.4) 05/21/22 04:02 Total Bilirubin 0.7 mg/dL (0.2-1.0) 05/20/22 08:50 AST 18 U/L (15-37) 05/20/22 08:50 ALT 23 U/L (13-56) 05/20/22 08:50 Alkaline Phosphatase 66 U/L (45-117) 05/20/22 08:50 Triglycerides 101 mg/dL (<150) 05/18/22 06:53 Cholesterol 181 mg/dL (<200) 05/18/22 06:53 HDL Cholesterol 58 mg/dL (40-60) 05/18/22 06:53 Cholesterol/HDL Ratio 3.12 05/18/22 06:53 Home Medications: Aspirin Chewable [Aspirin Chewable*] 81 mg PO DAILY #30 tab.chew 05/22/22 Atorvastatin Calcium [Lipitor] 40 mg PO BEDTIME #30 tab 05/22/22 Clopidogrel Bisulfate [Plavix*] 75 mg PO DAILY #30 tab 05/22/22 Furosemide [Lasix*] 40 mg PO BIDL #60 tab 05/22/22 Metoprolol Tartrate [Lopressor*] 25 mg PO BID 6AM 6PM #60 tab 05/22/22 Sacubitril/Valsartan [Entresto 24 mg-26 mg Tablet] 1 tab PO BID #60 tab 05/22/22 New Medications: Aspirin Chewable [Aspirin Chewable*] 81 mg PO DAILY #30 tab.chew Sacubitril/Valsartan [Entresto 24 mg-26 mg Tablet] 1 tab PO BID #60 tab Furosemide [Lasix*] 40 mg PO BIDL #60 tab Atorvastatin Calcium [Lipitor] 40 mg PO BEDTIME #30 tab Metoprolol Tartrate [Lopressor*] 25 mg PO BID 6AM 6PM #60 tab Clopidogrel Bisulfate [Plavix*] 75 mg PO DAILY #30 tab Diet: AHA Activity: Ad yodit Followup: NONE,NONE [Primary Care Provider] - Jonny Gonzalez MD [ACTIVE - CAN ADMIT] - 1-2 Weeks Wm Nelson MD [ACTIVE - CAN ADMIT] - 1 Week Time spent managing pt's care (in minutes): 35
[2022-05-22 13:33] VITALS: BP 144/72; TEMP 97
[2022-05-22] MEDS ORDERED: METOPROLOL TAR 25 MG TAB PO SCH (18:00)
== END 2022-05-22 16:01 | disposition home or self-care (01) | DRG 246 ==
LOC: ER 11:05 → ERHOLD 15:00 → 2ND 05-18 16:01
PROVIDERS: ADMIT Hospitalist; ATTEND Internal Medicine
PROC: 027034Z Dilation of Coronary Artery, One Artery with Drug-eluting Intraluminal Device, Percutaneous Approach (ICD-10-PCS; principal; 2022-05-21)
PROC: 4A023N7 Measurement of Cardiac Sampling and Pressure, Left Heart, Percutaneous Approach (ICD-10-PCS; 2022-05-21)
PROC: B2111ZZ Fluoroscopy of Multiple Coronary Arteries using Low Osmolar Contrast (ICD-10-PCS; 2022-05-21)
DX: I11.0 Hypertensive heart disease with heart failure (principal); I50.23 Acute on chronic systolic (congestive) heart failure; J96.01 Acute respiratory failure with hypoxia; I16.1 Hypertensive emergency; I31.39 Other pericardial effusion (noninflammatory); I25.10 Atherosclerotic heart disease of native coronary artery without angina pectoris; Z66 Do not resuscitate; Z79.82 Long term (current) use of aspirin; Z79.02 Long term (current) use of antithrombotics/antiplatelets; Z87.891 Personal history of nicotine dependence; Z28.310 Unvaccinated for COVID-19; Z20.822 Contact with and (suspected) exposure to COVID-19
CPT/HCPCS: 36415; 51702; 71045; 71250; 76937; 80048; 80053; 80061; 80076; 81003; 82550; 82805; 83036; 83735; 83880; 84100; 84132; 84439; 84443; 84484; 85025; 85027; 85347; 85610; 85730; 87811; 93306; 93454; 94760; 96372; 99285; C1725; C1760; C1893; C9600; G0269; J0360; J0461; J1644; J1650; J1940; J2250; J2270; J2405; J3010; J7040; Q9967

== ENCOUNTER 2022-07-23 10:41 | Day surgery (SDC) | payer OTHER ==
[2022-07-19 14:45] LABS: Absolute Lymphocytes (CBC) 3.1 K/uL (0.7-4.9); Hematocrit 41.5 % (36.0-45.0); Lymphocytes % 43.5 % (15.3-44.8); MPV 6.7 fL (7.6-11.3); RBC Red Blood Cell Count 4.71 M/uL (3.86-4.86)
--- NOTE | 2022-07-19 14:49 | RAD REPORT ---
EXAM DESCRIPTION: RAD - Chest Pa And Lat (2 Views) - 07/19/2022 2:41 pm CLINICAL HISTORY: Pre op pending heart cath COMPARISON: Chest Single View dated 05/21/2022; Chest Single View dated 05/18/2022; Chest Single Vie w dated 05/17/2022 FINDINGS: Lines: None. Lungs: No evidence of edema or pneumonia. Pleural: No significant pleural effusions or pneumothorax. Cardiac: The heart size is within normal limits. Mediastinum: Within normal limits. Bones: No acute fractures. Other: None IMPRESSION: No acute cardiopulmonary disease.
[2022-07-19 14:51] LABS: Protime INR 0.95
[2022-07-19 15:06] LABS: Potassium 3.5 mmol/L (3.5-5.1)
[~2022-07-23 10:41] MED LIST: ATROPINE SULF 1 MG/10 ML SYR IV ONE; FENTANYL CITR 100 MCG/2 ML ONE; HEPA 1000U/500MLS 2,000 UNIT/1,000 ML BAG IV ONE; HEPARIN 10,000 UNIT/10 ML VIAL IV ONE; LIDOCAINE 1% 20 ML MDV ONE; MIDAZOLAM HCL 2 MG/2 ML INJ ONE
[2022-07-23] MEDS ORDERED: NA CHLORIDE 0.9% 500 ML ONE (10:46)
[2022-07-23 10:55] VITALS: TEMP 98
[2022-07-23] MEDS ORDERED: CLOPIDOGREL 75 MG TABLET ONE (11:05)
[2022-07-23] MEDS ORDERED: ASPIRIN 325 MG TAB ONE (11:05)
[2022-07-23] MEDS ORDERED: TICAGRELOR 90 MG TABLET PO ONE (11:06)
--- NOTE | 2022-07-23 13:05 | OP ---
Date of Procedure: 07/23/2022 Surgeon: MARICHUY MARTINEZ Procedures Performed: 1.Selective coronary angiogram. 2.PCI of severe proximal RCA stenosis, used 2.5 x 20 mm Synergy drug-eluting stent. Indication: Systolic heart failure and coronary artery disease established with chest pain on exerti on. Access: Right femoral artery 6-B[place]an closed with StarClose. Complications: None. Bleeding: Less than 20 mL. Anesthesia: Total sedation time was 45 minutes, used fentanyl and Versed. Description Of Procedure: After risks, benefits, alternatives were explained, the patient agreed to the procedure and signed informed consent. The patient was brought into the cardiac catheterization laboratory, prepped and draped in the usual sterile fashion. Then, I accessed the right femoral ester ry using micropuncture kit, fluoroscopy, and ultrasound guidance, placed 6-B[place]wanan Banner sheath and then I took a 6-[place] LCB guide into the aortic root, engaged the RCA and took a short Run-Through wire into the RCA and placed distally. The lesion was pre-dilated using a 2.5 Compliant balloon. We then placed 2.5 x 20 mm Synergy drug-eluting stent with excellent results. Then, I removed the wire and the guide and then exchanged for a 6-[place] JL4 diagnostic catheter, engaged the left main, took standard views and then removed the catheter and the sheath. StarClose was used for closure with go od hemostasis. Heparin was given throughout the procedure to assure ACT level above 250. The patien t was re-loaded with Plavix and aspirin. Findings: 1.Left main; large and normal. 2.LAD is moderate size with luminal irregularities, normal diagonal branches. 3.Left circumflex is large and dominant, proximal patent stent extending to the OM that is patent. No other disease. 4.RCA is codominant with severe proximal stenosis 80% to 90%, status post successful PCI as above. Conclusion: 1.Severe RCA stenosis, status post successful PCI as above. 2.Patent left circumflex stent. Otherwise, no significant disease. Plan: Aspirin, Plavix, and statin. SR/MODL Voice ID: [id number] Report ID: [id number]
[2022-07-23 17:26] VITALS: O2SAT 99
--- NOTE | 2022-07-23 17:26 | EKG ---
Test Date: 2022-07-19 Test Time: 14:22:22 Radio Repairer Domestic: NADIRA MEASUREMENT RESULTS: Intervals: Rate: 61 MO: 128 QRSD: 86 QT: 436 QTc: 438 [place]: P: 54 MO: 128 QRS: -23 T: 77 INTERPRETIVE STATEMENTS: Normal sinus rhythm Nonspecific T wave abnormality Abnormal ECG No previous ECG available for comparison Electronically Signed On 07-23-22 17:16:45 RV BODY MECHANIC by Jonny Gonzalez
[2022-07-23 17:27] VITALS: BP 157/60
== END 2022-07-23 17:25 | disposition home or self-care (01) ==
LOC: CCL 10:41
PROVIDERS: ATTEND Internal Medicine
DX: I25.10 Atherosclerotic heart disease of native coronary artery without angina pectoris (principal); I11.0 Hypertensive heart disease with heart failure; I50.20 Unspecified systolic (congestive) heart failure; E78.5 Hyperlipidemia, unspecified; Z95.5 Presence of coronary angioplasty implant and graft; Z79.02 Long term (current) use of antithrombotics/antiplatelets; Z79.82 Long term (current) use of aspirin; Z79.899 Other long term (current) drug therapy
CPT/HCPCS: 93005; 85025; 80048; 36415; 85610; 82947; 85347 ×4; 85730; 71046; 92920; 93458; 76937; C1893; C1725; C1887; J2001; J2250; J3010; J7040; J1644; 93454; C9600; J0461

== ENCOUNTER 2025-01-15 22:03 | Emergency (ER) | payer OTHER ==
[2025-01-15] MEDS ORDERED: HYDROCODONE/APAP 5/325 MG TAB ONE (22:31)
[2025-01-16] MEDS ORDERED: GABAPENTIN 300 MG CAP ONE (00:30)
--- NOTE | 2025-01-16 00:59 | ER ---
Nurse's Notes [facility] Name: Namrata Steinberg Age: 69 yrs Sex: Female : 1955 Arrival Date: 01/15/2025 Time: 22:03 Bed 6 Private MD: Diagnosis: Postherpetic neuralgia Presentation: 01/15 22:15 Chief complaint: EMS states: pt c/o pain to left side of the head and left eye. vc1 Coronavirus screen: At this time, the client does not indicate any symptoms associated with coronavirus-19. Ebola Screen: No symptoms or risks identified at this time. Initial Sepsis Screen: Does the patient meet any 2 criteria? No. Patient's initial sepsis screen is negative. Does the patient have a suspected source of infection? No. Patient's initial sepsis screen is negative. Risk Assessment: Do you want to hurt yourself or someone else? Patient reports no desire to harm self or others. Onset of symptoms was January 15, 2025. 22:15 Method Of Arrival: EMS: [facility] vc1 22:15 Acuity: SANDOVAL 3 vc1 Triage Assessment: 22:19 Headache History: The patient has had previous headaches and this one is similar to vc1 previous episodes. General: Appears in no apparent distress. uncomfortable, Behavior is calm, cooperative, appropriate for age. Pain: Pain currently is 10 out of 10 on a pain scale. Pain began about 5 weeks Also complains of no other associated symptoms. EENT: Sclera/Cornea are reddened in left eye Reports pain in left eye. Neuro: Level of Consciousness is awake, alert, obeys commands, Oriented to person, place, time, situation, Appropriate for age. Cardiovascular: Patient's skin is warm and dry. Respiratory: Airway is patent Respiratory effort is even, unlabored, Respiratory pattern is regular, symmetrical. GI: Abdomen is non-distended. Historical: - Allergies: 22:19 No Known Allergies; vc1 - PMHx: 22:19 Congestive heart failure; shingles (Hypertensive disord); Hypertensive disorder; High vc1 Cholesterol; diabetes mellitus; coronary atherosclerosis; - Immunization history:: Client reports having NOT received the Covid vaccine. - Infectious Disease History:: Denies. - Social history:: Smoking status: Patient denies any tobacco usage or history of. Screenin:02 [facility] ED Fall Risk Assessment (Adult) History of falling in the last 3 months, tb4 including since admission No falls in past 3 months (0 pts) Confusion or Disorientation Yes (5 pts) Intoxicated or Sedated Yes (3 pts) Impaired Gait Yes (1 pt) Mobility Assist Device Used No (0 pt) Altered Elimination Yes (1 pt) Score/Fall Risk Level 3 or more points = High Risk Maintained a safe environment, Assessed \T\ reinforced patient's understanding of fall precautions. Abuse screen: unable to assess. Nutritional screening: unable to assess. 01/16 03:37 Tuberculosis screening: No symptoms or risk factors identified. Never had TB. cp4 Assessment: 01/15 23:02 Reassessment: Patient is alert, oriented x 3, equal unlabored respirations, skin tb4 warm/dry/pink. See triage note. General: Appears Patient is awake but not responsive. . Behavior is drowsy, unresponsive. Pain: Unable to use pain scale. Patient is unresponsive. Neuro: Level of Consciousness is awake, Oriented to none Dye Line Operator are weakness to upper and lower bilateral limbs. Respiratory: Airway is patent Trachea midline Respiratory effort is even, unlabored, Respiratory pattern is regular, symmetrical. GI: No deficits noted. : No deficits noted. Derm: Skin is intact, Skin is clammy, Skin is pink, warm \T\ dry. Skin temperature is warm. Vital Signs: 22:15 BP 108 / 54; Pulse 71; Resp 12; Temp 97.9(O); Pulse Ox 96% on R/A; Weight 78.02 kg; vc1 Height 5 ft. 7 in. ; 23:02 BP 136 / 85; Pulse 77; Resp 20; Pulse Ox 97% on 3 lpm NC; Pain 0/10; tb4 01/16 00:27 BP 107 / 61; Pulse 64; Resp 18; Pulse Ox 96% ; cp4 01:30 BP 115 / 56; Pulse 64; Resp 17; Pulse Ox 96% ; cp4 02:30 BP 106 / 47; Pulse 80; Resp 18; Pulse Ox 95% ; cp4 03:30 BP 104 / 50; Pulse 75; Resp 18; Pulse Ox 98% ; cp4 01/15 22:15 Body Mass Index 26.94 (78.02 kg, 170.18 cm) vc1 23:02 Pain Scale: Adult tb4 ED Course: 01/15 22:11 Patient arrived in ED. gm2 22:15 Dre Marsh DO is Attending Physician. kb 22:16 Dre Marsh DO is Attending Physician. ms3 22:19 Triage completed. vc1 22:19 Arm band placed on right wrist. vc1 22:45 purewick placed. rk3 23:02 Patient has correct armband on for positive identification. Call light in reach. Side tb4 rails up X 1. Adult w/ patient. 01/16 00:57 Henna Dc MD is Referral Physician. ms3 01:15 No provider procedures requiring assistance completed. tb4 01:30 Provided Education on: Take medication as prescribed. tb4 03:37 Patient did not have IV access during this emergency room visit. cp4 Administered Medications: 01/15 22:42 Drug: HYDROcodone-acetaminophen PO 5 mg-325 mg 1 tabs PO once Route: PO; tb4 01/16 00:32 Follow up: Response: No adverse reaction cp4 00:32 Drug: Gabapentin PO 300 mg PO once Route: PO; cp4 01:08 Follow up: Response: No adverse reaction; Pain is decreased tb4 Medication: 01/15 23:02 VIS not applicable for this client. tb4 Outcome: 01/16 00:58 Discharge ordered by . ms3 01:30 Discharged to home ambulatory, tb4 01:30 Condition: stable 01:30 Discharge instructions given to patient, family, Instructed on discharge instructions, follow up and referral plans. Demonstrated understanding of instructions, follow-up care, medications, Prescriptions given X 1, 03:37 Patient left the ED. cp4 Signatures: Makayla Crisostomo, REIMBURSEMENT MANAGER-C REIMBURSEMENT MANAGER-Ckb Dre Marsh DO DO ms3 Leticia Hernandez RN RN vc1 Lyudmila De Los Santos cp4 Marilee Baca gm2 Marilyn Stiles rk3 Alivia Chu RN RN tb4
--- NOTE | 2025-01-16 00:59 | EDPHYS ---
Physician Documentation [facility] Name: Namrata Steinberg Age: 69 yrs Sex: Female : 1955 Arrival Date: 01/15/2025 Time: 22:03 Bed 6 Private MD: ED Physician Dre Marsh HPI: 01/15 22:19 This 69 yrs old Female presents to ER via EMS with complaints of Headache. ms3 22:19 69-year-old female with history of shingles presents to the emergency department from [address] via [facility] for left-sided facial pain that has been occurring all summer. Patient states she is having left-sided head pain that she rates 10/10 and is pulsatile. She denies any alleviating or inciting factors. Patient states her primary care physician, Dr. Dc, has placed her on gabapentin.. Historical: - Allergies: 22:19 No Known Allergies; vc1 - PMHx: 22:19 Congestive heart failure; shingles (Hypertensive disord); Hypertensive disorder; High vc1 Cholesterol; diabetes mellitus; coronary atherosclerosis; - Immunization history:: Client reports having NOT received the Covid vaccine. - Infectious Disease History:: Denies. - Social history:: Smoking status: Patient denies any tobacco usage or history of. ROS: 22:19 Constitutional: Negative for fever, and chills. Cardiovascular: Negative for chest ms3 pain, and palpitations. Respiratory: Negative for shortness of breath, cough, wheezing, and pleuritic chest pain, Abdomen/GI: Negative for abdominal pain, nausea, vomiting, diarrhea, and constipation, MS/Extremity: Negative for injury and deformity, 22:19 Skin: Positive for rash, of the left face, Exam: 22:19 Constitutional: This is a well developed, well nourished patient who is awake, alert, ms3 and in no acute distress. 22:19 Cardiovascular: Regular rate and rhythm with a normal S1 and S2. No gallops, murmurs, or rubs. Normal PMI, no JVD. No pulse deficits. Respiratory: Lungs have equal breath sounds bilaterally, clear to auscultation and percussion. No rales, rhonchi or wheezes noted. No increased work of breathing, no retractions or nasal flaring. Abdomen/GI: Soft, non-tender, with normal bowel sounds. No distension or tympany. No guarding or rebound. No evidence of tenderness throughout. 22:19 Head/face: Noted is rash, resolving varicella rash left face, Vital Signs: 22:15 BP 108 / 54; Pulse 71; Resp 12; Temp 97.9(O); Pulse Ox 96% on R/A; Weight 78.02 kg; vc1 Height 5 ft. 7 in. ; 23:02 BP 136 / 85; Pulse 77; Resp 20; Pulse Ox 97% on 3 lpm NC; Pain 0/10; tb4 01/16 00:27 BP 107 / 61; Pulse 64; Resp 18; Pulse Ox 96% ; cp4 01:30 BP 115 / 56; Pulse 64; Resp 17; Pulse Ox 96% ; cp4 02:30 BP 106 / 47; Pulse 80; Resp 18; Pulse Ox 95% ; cp4 03:30 BP 104 / 50; Pulse 75; Resp 18; Pulse Ox 98% ; cp4 01/15 22:15 Body Mass Index 26.94 (78.02 kg, 170.18 cm) vc1 23:02 Pain Scale: Adult tb4 MDM: 01/15 22:16 Medical Screening Exam initiated ms3 22:19 Differential diagnosis: post herpatic neuralgia. ms3 01/16 02:14 Data reviewed: vital signs, nurses notes, and as a result, I will discharge patient. I ms3 considered the following discharge prescriptions or medication management in the emergency department Medications were administered in the Emergency Department. See MAR. Counseling: I had a detailed discussion with the patient and/or guardian regarding the historical points, exam findings, and any diagnostic results supporting the discharge/admit diagnosis, the need for outpatient follow up, to return to the emergency department if symptoms worsen or persist or if there are any questions or concerns that arise at home. Special discussion: I discussed with the patient/guardian in detail that at this point there is no indication for admission to the hospital. It is understood, however, that if the symptoms persist or worsen the patient needs to return immediately for re-evaluation. ED course: Patient states she has a prescription for gabapentin to be taking at the nursing facility. Patient's symptoms have improved since arrival to the emergency department, patient is alert and orient x 4, no apparent distress, nontoxic-appearing, speaking full sentences. Patient to follow-up with her primary care physician in 2 to 3 days. Patient and her understand and agree with plan. All questions were answered. Return precautions discussed include worsening symptoms, or any other concerns.. Administered Medications: 01/15 22:42 Drug: HYDROcodone-acetaminophen PO 5 mg-325 mg 1 tabs PO once Route: PO; tb4 01/16 00:32 Follow up: Response: No adverse reaction cp4 00:32 Drug: Gabapentin PO 300 mg PO once Route: PO; cp4 01:08 Follow up: Response: No adverse reaction; Pain is decreased tb4 Disposition Summary: 01/16/25 00:58 Discharge Ordered Notes: Location: Home ms3 Condition: Stable ms3 Diagnosis - Postherpetic neuralgia ms3 Followup: ms3 - With: Henna Dc MD - When: 2 - 3 days - Reason: Recheck today's complaints Discharge Instructions: - Discharge Summary Sheet ms3 - Shingles, [id number] ms3 - Postherpetic Neuralgia ms3 Forms: - Medication Reconciliation Form ms3 - Antibiotic Education ms3 - Prescription Opioid Use ms3 - Patient Portal Instructions ms3 - Leadership Thank You Letter ms3 Signatures: Dre Marsh DO DO ms3 Leticia Hernandez, RN RN vc1 Lyudmila De Los Santos cp4 Alivia Chu, RN RN tb4
[2025-01-16 03:42] VITALS: TEMP 97.9
[2025-01-16 03:50] VITALS: BP 104/50; O2SAT 98
== END 2025-01-16 03:37 | disposition home or self-care (01) ==
LOC: ER 22:03
DX: B02.29 Other postherpetic nervous system involvement (principal)
CPT/HCPCS: 99284

== ENCOUNTER 2025-01-18 11:37 | Emergency (ER) | payer OTHER ==
--- NOTE | 2025-01-18 12:24 | EDPHYS ---
Physician Documentation [facility] Name: Namrata Steinberg Age: 69 yrs Sex: Female : 1955 Arrival Date: 01/18/2025 Time: 11:37 Bed 12 Private MD: ED Physician Eduardo Kraues HPI: 01/18 12:21 This 69 yrs old Female presents to ER via EMS with complaints of Eye Pain. sp3 12:21 69-year-old female with history of diabetes, CHF, CAD with recent pelvic fractures now sp3 recovering and local senior care presents with known postherpetic neuralgia from shingles of the left eye. Patient has had chronic pain since the she has had the shingles and has been treated with Tylenol before and gabapentin. She states this is not working and is here for further pain relief. She normally sees Dr. Dc but currently she is under the care of senior care physician. She denies any other symptoms and remainder of ROS is negative.. Historical: - Allergies: 11:41 No Known Allergies; ll1 - PMHx: 11:41 Congestive heart failure; coronary atherosclerosis; diabetes mellitus; High ll1 Cholesterol; Hypertensive disorder; shingles (Hypertensive disord); - PSHx: 11:41 cardiac stents; ll1 - Immunization history:: Adult Immunizations up to date. - Social history:: Smoking status: Patient denies any tobacco usage or history of. ROS: 12:22 Constitutional: Negative for fever, chills, and weight loss, ENT: Negative for injury, sp3 pain, and discharge, Neck: Negative for injury, pain, and swelling, Cardiovascular: Negative for chest pain, palpitations, and edema, Respiratory: Negative for shortness of breath, cough, wheezing, and pleuritic chest pain, Abdomen/GI: Negative for abdominal pain, nausea, vomiting, diarrhea, and constipation, Back: Negative for injury and pain, MS/Extremity: Negative for injury and deformity, Skin: Negative for injury, rash, and discoloration, Psych: Negative for depression, anxiety, suicide ideation, homicidal ideation, and hallucinations, Allergy/Immunology: Negative for hives, rash, and allergies, Endocrine: Negative for neck swelling, polydipsia, polyuria, polyphagia, and marked weight changes, Hematologic/Lymphatic: Negative for swollen nodes, abnormal bleeding, and unusual bruising, 12:22 All other systems are negative, Exam: 12:22 Constitutional: This is a well developed, well nourished patient who is awake, alert, sp3 and in no acute distress. Head/Face: Normocephalic, atraumatic. ENT: Nares patent. No nasal discharge, no septal abnormalities noted. External auditory canals are clear. Oropharynx with no redness, swelling, or masses, exudates, or evidence of obstruction, uvula midline. Mucous membranes moist. Neck: Trachea midline, no thyromegaly or masses palpated, and no cervical lymphadenopathy. Supple, full range of motion without nuchal rigidity, or vertebral point tenderness. No Meningismus. Chest/axilla: Normal chest wall appearance and motion. Nontender with no deformity. No lesions are appreciated. Cardiovascular: Regular rate and rhythm with a normal S1 and S2. No gallops, murmurs, or rubs. Normal PMI, no JVD. No pulse deficits. Respiratory: Lungs have equal breath sounds bilaterally, clear to auscultation and percussion. No rales, rhonchi or wheezes noted. No increased work of breathing, no retractions or nasal flaring. Abdomen/GI: Soft, non-tender, with normal bowel sounds. No distension or tympany. No guarding or rebound. No evidence of tenderness throughout. Neuro: Awake and alert, GCS 15, oriented to person, place, time, and situation. Cranial nerves II-XII grossly intact. Motor strength 5/5 in all extremities. Sensory grossly intact. Cerebellar exam normal. Normal gait. 12:22 Neuro: Neuroexam limited secondary to known fractures. Patient is bedbound. Mentating normally., 12:23 Eyes: Left eye red and somewhat constricted periocular skin. Patient states this is sp3 baseline and normal. There is no change in her eye appearance.. Vital Signs: 11:41 BP 126 / 71; Pulse 84; Resp 16; Temp 97.4; Pulse Ox 96% ; Pain 10/10; ll1 11:41 Pain Scale: Adult ll1 MDM: 11:48 Medical Screening Exam initiated sp3 12:23 Data reviewed: vital signs, nurses notes, old medical records. ED course: 5-year-old sp3 female with chronic left eye pain secondary to postherpetic neuralgia. I discussed the case with the PCP Dr. Dc however he states that the nursing physician will need to be the 1 to changes her medications at the senior care from gabapentin and Tylenol for to gabapentin and hydrocodone if they deem necessary. I will give Dilaudid 1 dose in the ED and then discharged him home. I have explained all of this to the patient.. 01/18 12:44 Order name: IV Start; Complete Time: 12:44 ll1 Administered Medications: 12:44 Drug: HYDROmorphone IVP 1 mg IVP once Route: IVP; Site: right hand; [facility] 14:00 Follow up: Response: No adverse reaction; Pain is decreased iw 12:45 Drug: Ondansetron IVP 4 mg IVP once; over 2 minutes Route: IVP; Site: right hand; [facility] 01/19 11:04 Follow up: Response: No adverse reaction iw Disposition Summary: 01/18/25 12:24 Discharge Ordered Notes: Location: Home sp3 Condition: Stable sp3 Diagnosis - Postherpetic neuralgia left eye sp3 Followup: sp3 - With: Private Physician - When: Upon discharge from the Emergency Department - Reason: Continuance of care Discharge Instructions: - Discharge Summary Sheet sp3 - Chronic Pain, Adult sp3 Forms: - Medication Reconciliation Form sp3 - Antibiotic Education sp3 - Prescription Opioid Use sp3 - Patient Portal Instructions sp3 - Leadership Thank You Letter sp3 Signatures: John Zavala, RN RN ll1 Eduardo Krause MD MD sp3 Amy Beaver RN iw
--- NOTE | 2025-01-18 12:24 | ER ---
Nurse's Notes [facility] Name: Namrata Steinberg Age: 69 yrs Sex: Female : 1955 Arrival Date: 01/18/2025 Time: 11:37 Bed 12 Private MD: Diagnosis: Postherpetic neuralgia left eye Presentation: 01/18 11:41 Chief complaint: Patient states: Tylenol #4 and gabapentin not helping her eye pain. ll1 Coronavirus screen: Client denies travel out of the [place] in the last 14 days. At this time, the client does not indicate any symptoms associated with coronavirus-19. Ebola Screen: Patient denies travel to an Ebola-affected area in the 21 days before illness onset. Mechanism of Injury: No Mechanism of Injury. The patient denies any loss of vision. Initial Sepsis Screen: Does the patient meet any 2 criteria? No. Patient's initial sepsis screen is negative. Does the patient have a suspected source of infection? No. Patient's initial sepsis screen is negative. Risk Assessment: Do you want to hurt yourself or someone else? Patient reports no desire to harm self or others. Onset of symptoms was January 18, 2025. 11:41 Method Of Arrival: EMS: [facility] ll1 11:41 Acuity: SANDOVAL 4 ll1 Triage Assessment: 11:43 General: Appears uncomfortable, Behavior is calm, cooperative, appropriate for age. ll1 Pain: Pain currently is 8 out of 10 on a pain scale. EENT: Reports pain in left eye. Historical: - Allergies: 11:41 No Known Allergies; ll1 - PMHx: 11:41 Congestive heart failure; coronary atherosclerosis; diabetes mellitus; High ll1 Cholesterol; Hypertensive disorder; shingles (Hypertensive disord); - PSHx: 11:41 cardiac stents; ll1 - Immunization history:: Adult Immunizations up to date. - Social history:: Smoking status: Patient denies any tobacco usage or history of. Screenin:00 [facility] ED Fall Risk Assessment (Adult) History of falling in the last 3 months, iw including since admission Yes- single mechanical fall (1 pt) Confusion or Disorientation No (0 pts) Intoxicated or Sedated No (0 pts) Impaired Gait Yes (1 pt) Mobility Assist Device Used Yes (1 pt) Altered Elimination Yes (1 pt) Score/Fall Risk Level 3 or more points = High Risk Oriented to surroundings, Maintained a safe environment. Abuse screen: Denies threats or abuse. Denies injuries from another. Nutritional screening: No deficits noted. Tuberculosis screening: No symptoms or risk factors identified. Assessment: 12:46 Reassessment: No changes from previously documented assessment. Patient and/or family ll1 updated on plan of care and expected duration. Pain level reassessed. Patient is alert, oriented x 3, equal unlabored respirations, skin warm/dry/pink. Vital Signs: 11:41 BP 126 / 71; Pulse 84; Resp 16; Temp 97.4; Pulse Ox 96% ; Pain 10/10; ll1 11:41 Pain Scale: Adult ll1 ED Course: 11:41 Patient arrived in ED. ll1 11:43 Triage completed. ll1 11:43 Arm band placed on. ll1 11:48 Eduardo Krause MD is Attending Physician. sp3 12:44 Inserted saline lock: 24 gauge in right hand, using aseptic technique. Flushed with 10 ll1 mL NS. 12:57 Report given to Director of [facility]. She is arranging transportation. ll1 13:42 Amy Beaver, RN is Primary Nurse. iw 14:00 No provider procedures requiring assistance completed. IV discontinued, intact, iw bleeding controlled, No redness/swelling at site. Pressure dressing applied. Administered Medications: 12:44 Drug: HYDROmorphone IVP 1 mg IVP once Route: IVP; Site: right hand; ll1 14:00 Follow up: Response: No adverse reaction; Pain is decreased iw 12:45 Drug: Ondansetron IVP 4 mg IVP once; over 2 minutes Route: IVP; Site: right hand; ll1 01/19 11:04 Follow up: Response: No adverse reaction iw Outcome: 12 12:24 Discharge ordered by . sp3 14:00 Patient left the ED. iw 14:00 Discharged to longterm. iw 14:00 Condition: good 14:00 Discharge instructions given to patient, Instructed on discharge instructions, follow up and referral plans. Demonstrated understanding of instructions, follow-up care, Signatures: Amy Beaver RN RN iw John Zavala RN RN 1 Eduardo Krause MD MD sp3
[2025-01-18] MEDS ORDERED: ONDANSETRON 4 MG/2 ML VIAL ONE (12:34)
[2025-01-18] MEDS ORDERED: HYDROMORPHONE HCL 1 MG/ML INJ ONE (12:34)
[2025-01-18 14:28] VITALS: BP 126/71; TEMP 97.4; O2SAT 96
== END 2025-01-18 14:00 | disposition home or self-care (01) ==
LOC: ER 11:37
DX: B02.29 Other postherpetic nervous system involvement (principal); E11.9 Type 2 diabetes mellitus without complications; I11.0 Hypertensive heart disease with heart failure; I50.9 Heart failure, unspecified; I25.10 Atherosclerotic heart disease of native coronary artery without angina pectoris; Z95.5 Presence of coronary angioplasty implant and graft
CPT/HCPCS: 96374; 96375; 99284; J1171; J2405

== ENCOUNTER 2025-01-26 20:38 | Emergency (ER) | payer OTHER ==
[2025-01-26] MEDS ORDERED: ONDANSETRON 4 MG/2 ML VIAL ONE (21:32)
[2025-01-26] MEDS ORDERED: FENTANYL CITR 100 MCG/2 ML ONE (21:33)
[2025-01-26] MEDS ORDERED: NA CHLORIDE 0.9% 1,000 ML ONE (21:33)
[2025-01-26 21:58] LABS: Absolute Lymphocytes (CBC) 1.7 K/uL (0.7-4.9); Hematocrit 39.3 % (36.0-45.0); Hemoglobin 13.4 g/dL (12.0-15.0); MCH 32.3 pg (27.0-35.0); MCHC 34.0 g/dL (32.0-36.0); MCV 95.1 fL (80-100); MPV 6.6 fL (7.6-11.3); Nucleated RBC Absolute Count 0.0 (0-0); Nucleated Red Blood Cells % 0.0 % (0-0); RBC Red Blood Cell Count 4.14 M/uL (3.86-4.86); White Blood Count 9.30 thou/uL (4.3-10.9)
[2025-01-26 22:05] LABS: PT Prothrombin Time 14.0 SECONDS (10-13.0); Protime INR 1.25
[2025-01-26 22:33] LABS: ALT/SGPT 26.0 U/L (13-56); AST/SGOT 41.0 U/L (15-37); Albumin 2.6 g/dL (3.4-5.0); Albumin/Globulin Ratio 0.5 (1.1-1.8); Alkaline Phosphatase 286.0 U/L (45-117); Anion Gap 11.9 mEq/L (5.0-15.0); BUN Blood Urea Nitrogen 22.0 mg/dL (7-18); Bilirubin Indirect, Calculated 0.4 mg/dL (0.2-0.8); Globulin 5.1 g/dL (2.3-3.5); Glucose Level 120.0 mg/dL (74-106); Magnesium 2.3 mg/dL (1.6-2.4); NT PRO-BNP 294.0 pg/mL (<125); Potassium 3.9 mEq/L (3.5-5.1); Troponin High Sensitivity 6.2 pg/mL (<58.9)
[2025-01-26 23:09] LABS: Urine Micro Reflex YN NO BILL NO MICROSCOPIC; Urine WBC Clump Many /HPF (None Seen); Urine Yeast (Budding) Many /HPF (None Seen)
--- NOTE | 2025-01-26 23:09 | RAD REPORT ---
EXAM: CT CHEST, ABDOMEN AND PELVIS WITHOUT CONTRAST CLINICAL INDICATION: Female, 69 years old. [facility] MAIN FELL ED RM 15 NO CONTRAST TECHNIQUE: CT chest, abdomen and pelvis was performed, without IV contrast, as per department protoco l. Axial, sagittal and coronal reconstructions were obtained. One or more of the following dose reduction techniques were used: Automated exposure control, adjustment of the mA and/or kV according to the patient size, and/or iterative reconstruction. Unless otherwise specified, incidental findings do not require dedicated imaging follow-up. COMPARISON: Pelvis CT 12/19/2024. CT chest 05/18/2022 FINDINGS: The lack of intravenous contrast limits the sensitivity of this exam for evaluation of solid visceral organs, vascular structures, and retroperitoneum. Chest: LOWER NECK/CHEST WALL: Visualized thyroid gland and soft tissues are normal. LUNGS AND AIRWAYS: Airways are clear. No evidence of airspace or interstitial process apart from biba silar platelike atelectatic changes.. No nodules. PLEURA: No pleural effusion. No pneumothorax. Hemidiaphragms are normally positioned. MEDIASTINUM AND LYMPH NODES: No mediastinal mass or fluid collection. Normal size mediastinal, hilar, and axillary lymph nodes. THORACIC AORTA: Normal caliber and configuration. PULMONARY ARTERIES: Normal caliber. HEART: Unremarkable. Abdomen/Pelvis LIVER: Normal in size and contour. No focal lesion. GALLBLADDER/BILE DUCTS: Multiple cholesterol containing 1.8-2.0 cm gallstones near the neck and at th e fundus. No biliary ductal dilatation. PANCREAS: No mass, ductal dilation, or thee-pancreatic fluid. SPLEEN: Normal size. No focal lesion. ADRENALS: Normal; no mass. KIDNEYS AND URETERS: Normal size and contour. Mild to moderate left hydroureteronephrosis, extending to the mid to distal ureter, without evidence of an obstructing calculus. This is stable.. GASTROINTESTINAL TRACT: Stomach is non-dilated. Small bowel has normal course and caliber. No colonic wall thickening or pericolonic inflammatory changes. Large stool burden within the sigmoid colon and rectum PERITONEUM: No free fluid. LYMPH NODES: No lymphadenopathy. ABDOMINAL AORTA AND OTHER VESSELS: Normal caliber aorta and IVC. URINARY BLADDER: Markedly distended without wall thickening or focal abnormality. Layering air-fluid level now noted. REPRODUCTIVE ORGANS: No pathologic process. MUSCULOSKELETAL: Changes of partial healing with callus formation along the right pubic bone and junc tion with the superior and inferior pubic rami, as well as the mid aspect of the right inferior pubic ramus. Comminuted right sacral ala fractures also show signs of partial healing. Healing fractu res along the anterior left third through ninth ribs, approximating the costochondral junctions along the lower ribs. Healing fractures also seen along the anterior right fourth through ninth ribs. Changes of partial fracture healing seen along the right humeral head is well, with displaced fragments. Central L3 superior endplate compression deformity of indeterminate age. ADDITIONAL FINDINGS: Partial improvement of soft tissue thickening and fat stranding along the right suprapubic space, suggestive of nonlocalized resolving hematoma. IMPRESSION: Healing fractures throughout the pelvis, stable since the prior CT. Bilateral healing rib fractures, and changes of partial healing of known humeral head fracture as well. Central superior endplate compression deformity at L3 of indeterminate age. Stable up to moderate left hydroureteronephrosis, without evidence of an obstructing calculus, could relate to retrograde reflux. A small air-fluid level is now noted within the distended urinary bladder, please correlate clinically for recent instrumentation. Other incidental findings as above.
--- NOTE | 2025-01-26 23:22 | RAD REPORT ---
EXAM: CT brain without contrast HISTORY: fall, pain COMPARISON: 05/21/2025 TECHNIQUE: Multiple contiguous axial images were obtained and a CT of the brain without contrast. Sag ittal and coronal reformats were performed. FINDINGS: No evidence of hydrocephalus, intracranial hemorrhage, or extra-axial fluid collection. Mild brain atrophy with mild periventricular and deep white matter chronic microvascular ischemic ch anges present. The calvarium is intact. The visualized paranasal sinuses and mastoid air cells are essentially clear . IMPRESSION: No evidence of acute intracranial abnormality. EXAM: CT of the cervical spine without contrast HISTORY: fall, pain COMPARISON: None TECHNIQUE: Multiple contiguous axial images were obtained in a CT of the cervical spine without contr ast. Sagittal and coronal reformats were performed. FINDINGS: The vertebral bodies demonstrate normal height and alignment. No evidence of acute fracture or subluxation.. Mild degenerative changes are present. No prevertebral soft tissue swelling is seen. The posterior facets are well aligned. Normal alignment of the skull base with the cervical spine is seen. The lung apices are unremarkable. IMPRESSION: No evidence of acute osseous abnormality of the cervical spine.
--- NOTE | 2025-01-27 00:58 | ER ---
Nurse's Notes [facility] Vicki Name: Namrata Steinberg Age: 69 yrs Sex: Female : 1955 Arrival Date: 01/26/2025 Time: 20:38 Bed 15 Private MD: Diagnosis: Acute UTI, acute fall at the [facility], acute pelvic contusion. Subacute Healing pelvic fractures,;Subacute L3 superior endplate compression fracture. Presentation: 01/26 21:14 Chief complaint: Patient states: WAS STANDING ON THE SIDE OF THE BED AND FELL BACKWARD jj7 ONTO HER BUTTOCKS. HX OF PELVIC AND RIGHT ARM FRACTURE UNRELATED TO THE FALL. HAS A HEADACHE UNRELATED TO THE FALL EMS states: STATES THEY WERE INITIALLY CALLED OUT FOR HYPOTENSION, BUT WHEN THEY ARRIVED PT HAD FALLEN. Coronavirus screen: At this time, the client does not indicate any symptoms associated with coronavirus-19. Ebola Screen: No symptoms or risks identified at this time. Initial Sepsis Screen: Does the patient meet any 2 criteria? No. Patient's initial sepsis screen is negative. Does the patient have a suspected source of infection? No. Patient's initial sepsis screen is negative. Risk Assessment: Do you want to hurt yourself or someone else? Patient reports no desire to harm self or others. Note PT IS ON PLAVIX AND ASA. Onset of symptoms was January 26, 2025. 21:14 Method Of Arrival: EMS: [facility] jj7 21:14 Acuity: SANDOVAL 3 jj7 21:30 Care prior to arrival: None. Mechanism of Injury: Fall from standing position. Trauma kj2 event details: Injury occurred: January 26, 2025. Triage Assessment: 21:18 General: Appears in no apparent distress. comfortable, Behavior is calm, cooperative, jj7 appropriate for age. Pain: Complains of pain in head. Neuro: Level of Consciousness is awake, alert, obeys commands, Oriented to person, place, time, situation, Appropriate for age Reports headache in left. Cardiovascular: No deficits noted. Capillary refill < 3 seconds Patient's skin is warm and dry. Respiratory: No deficits noted. Airway is patent Respiratory effort is even, unlabored, Respiratory pattern is regular, symmetrical. GI: No deficits noted. Musculoskeletal: Reports pain in pelvis WITH PALPATION. Historical: - Allergies: 21:18 No Known Allergies; jj7 - PMHx: 21:18 Congestive heart failure; coronary atherosclerosis; diabetes mellitus; High jj7 Cholesterol; Hypertensive disorder; shingles (Hypertensive disord); - PSHx: 21:18 cardiac stents; jj7 - Immunization history:: Adult Immunizations up to date. - Infectious Disease History:: Denies. - Immunization history: Last tetanus immunization: unknown. - Social history:: Smoking status: Patient denies any tobacco usage or history of. Patient/guardian denies using alcohol, street drugs, IV drugs. - Family history:: not pertinent. Screenin:[address] [facility] ED Fall Risk Assessment (Adult) History of falling in the last 3 months, kj2 including since admission Yes- single mechanical fall (1 pt) Confusion or Disorientation No (0 pts) Intoxicated or Sedated No (0 pts) Impaired Gait Yes (1 pt) Mobility Assist Device Used Yes (1 pt) Altered Elimination No (0 pt) Score/Fall Risk Level 0 - 2 = Low Risk Maintained a safe environment, Hourly rounding (assess needs \T\ fall precautionary measures) done. Abuse screen: Denies threats or abuse. Denies injuries from another. Nutritional screening: No deficits noted. Tuberculosis screening: No symptoms or risk factors identified. Primary Survey: 21:30 NO uncontrolled hemorrhage observed. A: The client is awake and alert. The airway is kj2 patent. Breathing/Chest: Spontaneous respiratory effort, equal unlabored respirations, breath sounds clear bilaterally, regular pattern, symmetrical chest rise and fall. Respiratory effort: unlabored. Circulation: No external hemorrhage present. Regular and strong central pulse, skin warm/dry/normal color. Disability Pupils are equal, round, reactive to light and accommodation. Client is alert. Exposure/Environment: All clothing and personal items were removed. Forensic evidence collection is not deemed to be indicated at this time. Items placed in patient belonging bag. There is no evidence of uncontrolled external bleeding. 22:19 Reassessment Breathing:. kj2 Assessment: 21:30 General: Appears in no apparent distress. Behavior is cooperative. Pain: Complains of kj2 pain in pelvis and head Pain currently is 7 out of 10 on a pain scale. Neuro: Level of Consciousness is awake, alert, Oriented to person, place, time, situation. Cardiovascular: Patient's skin is warm and dry. Respiratory: Airway is patent Respiratory effort is unlabored. GI: No signs and/or symptoms were reported involving the gastrointestinal system. : No signs and/or symptoms were reported regarding the genitourinary system. 22:15 Reassessment: Patient appears in no apparent distress at this time. Patient and/or kj2 family updated on plan of care and expected duration. Pain level reassessed. Patient is alert, oriented x 3, equal unlabored respirations, skin warm/dry/pink. 23:15 Reassessment: Patient appears in no apparent distress at this time. Patient and/or kj2 family updated on plan of care and expected duration. Pain level reassessed. Patient is alert, oriented x 3, equal unlabored respirations, skin warm/dry/pink. 01/27 00:20 Reassessment: Patient and/or family updated on plan of care and expected duration. Pain ha1 level reassessed. 00:20 Respiratory: Airway is patent Respiratory effort is even, unlabored, Respiratory ha1 pattern is regular, symmetrical. 00:20 General: Appears comfortable, Behavior is calm, cooperative. Pain: Complains of pain in ha1 left side of head Pain does not radiate. Pain currently is 4 out of 10 on a pain scale. Quality of pain is described as burning. 00:20 Neuro: Level of Consciousness is awake, alert, obeys commands, Oriented to person, ha1 place, situation. Cardiovascular: Capillary refill < 3 seconds Patient's skin is warm and dry. Respiratory: Airway is patent Respiratory effort is even, unlabored, Respiratory pattern is regular, symmetrical. GI: Abdomen is round non-distended, obese. 01:02 Reassessment: ATTEMPTED TO CALLED [facility] MULTIPLE TIME TO GIVE REPORT AND ARRANGE ha1 TRANSPORTATION. 01:30 Reassessment: ATTEMPTED TO CALL [facility] PT HAS BEEN DISCHARGED. NEEDING TO [facility] GIVE REPORT AND FOR THEM TO ARRANGE TRANSPORT. 01:30 Reassessment: Patient and/or family updated on plan of care and expected duration. Pain ha1 level reassessed. Patient states feeling better. Patient states symptoms have improved. 01:42 Reassessment: SPOKE WITH [facility] STAFF. STATES THEY WILL ARRANGE TRANSPORT AND [facility] WILL CALL BACK WITH AN ETA. Vital Signs: 01/26 21:14 BP 110 / 49; Pulse 73; Resp 17; Temp 97.6; Pulse Ox 100% on R/A; Weight 78.02 kg; jj7 Height 5 ft. 7 in. ; 22:15 BP 116 / 59; Pulse 85; Resp 20; Pulse Ox 100% on 3.5 lpm NC; kj2 23:57 BP 118 / 60; Pulse 90; Resp 18; Pulse Ox 100% on 3.5 lpm NC; kj2 01/27 00:25 BP 103 / 58; Pulse 94; Resp 18 S; Pulse Ox 99% on 3 lpm NC; ha1 01:50 BP 107 / 50; Pulse 96; Resp 15 S; Pulse Ox 99% on 3 lpm NC; ha1 01/26 21:14 Body Mass Index 26.94 (78.02 kg, 170.18 cm) jj7 Jennifer Coma Score: 01/26 21:30 Eye Response: spontaneous(4). Motor Response: obeys commands(6). Verbal Response: kj2 oriented(5). Total: 15. 01/27 01:19 Eye Response: spontaneous(4). Motor Response: obeys commands(6). Verbal Response: sp4 oriented(5). Total: 15. Trauma Score (Adult): 01/26 21:30 Eye Response: spontaneous(1); Verbal Response: oriented(1); Motor Response: obeys kj2 commands(2); Systolic BP: > 89 mm Hg(4); Respiratory Rate: 10 to 29 per min(4); Jennifer Score: 15; Trauma Score: 12 ED Course: 21:13 Patient arrived in ED. jj7 21:13 Giuliana Santos RN is Primary Nurse. kj2 21:15 Goran Novoa MD is Attending Physician. sp4 21:18 Triage completed. jj7 21:18 Arm band placed on right wrist. Patient placed in an exam room, on a stretcher, Patient jj7 notified of wait time. 21:30 Patient has correct armband on for positive identification. Bed in low position. Call kj2 light in reach. Provided Education on: call light. 21:30 Missed attempt(s): 20 gauge in right antecubital area. Bleeding controlled, band aid ha1 applied, catheter tip intact. 21:40 Inserted saline lock: 22 gauge in left hand, using aseptic technique. Blood collected. ha1 Flushed with 10 mL NS. 22:20 Patient maintains SpO2 saturation greater than 95% on room air. Thermoregulation: none kj2 needed. 01/27 00:57 Head C Spine Mpr Wo Con In Process Unspecified. EDMS 00:57 Chest Abd Pelvis Wo Con In Process Unspecified. EDMS 02:30 No provider procedures requiring assistance completed. IV discontinued, intact, ha1 bleeding controlled, No redness/swelling at site. Pressure dressing applied. Administered Medications: 01/26 21:46 Drug: fentaNYL (PF) IVP 25 mcg IVP once Route: IVP; Site: right antecubital; kj2 22:00 Follow up: Response: No adverse reaction; Marked relief of symptoms; Pain is decreased; ha1 RASS: Alert and Calm (0) 21:46 Drug: Ondansetron IVP 4 mg IVP once; over 2 minutes Route: IVP; Site: right antecubital;kj2 22:00 Follow up: Response: No adverse reaction; Marked relief of symptoms ha1 22:08 Drug: NS 0.9% IV 1000 ml IV at 125 ml/hr once; to be given as a bolus over 60 minutes kj2 Route: IV; Rate: 125 ml/hr; Site: left hand; 01/27 02:30 Follow up: Response: No adverse reaction; IV Status: Completed infusion; IV Intake: ha1 500ml 01:00 Drug: Cephalexin PO 500 mg PO once Route: PO; ha1 01:30 Follow up: Response: No adverse reaction ha1 01:00 Drug: Fluconazole PO 200 mg PO once Route: PO; ha1 01:30 Follow up: Response: No adverse reaction ha1 Medication: 02:13 VIS not applicable for this client. ha1 Intake: 02:30 IV: 500ml; Total: 500ml. ha1 Outcome: 00:23 Discharge ordered by . sp4 02:30 Discharged to fdc. ha1 02:30 Condition: stable 02:30 Discharge instructions given to patient, Instructed on discharge instructions, follow up and referral plans. medication usage, Demonstrated understanding of instructions, follow-up care, medications, Prescriptions given X 3, 02:32 Patient left the ED. ha1 Signatures: Dispatcher [employer] Nicky Almeida RN RN ha1 Elodia Carey RN RN jj7 Goran Novoa MD MD sp4 Giuliana Santos RN RN kj2 Corrections: (The following items were deleted from the chart) 02:30 01:50 BP 107 / 50; Pulse 96bpm; Resp 15bpm; Spontaneous; Pulse Ox 94% RA; ha1 ha1 02:30 00:25 BP 103 / 58; Pulse 94bpm; Resp 18bpm; Spontaneous; Pulse Ox 94% RA; ha1 ha1
--- NOTE | 2025-01-27 00:58 | EDPHYS ---
Physician Documentation [facility] Name: Namrata Steinberg Age: 69 yrs Sex: Female : 1955 Arrival Date: 01/26/2025 Time: 20:38 Bed 15 Private MD: ED Physician Goran Novoa HPI: 01/26 21:15 This 69 yrs old Female presents to ER via Unassigned with complaints of Fall sp4 Injury. 21:18 69-year-old female who is on aspirin and Plavix presents from long term with sp4 complaint of acute hypotensive episode and fall. Apparently patient fell out of bed causing pain in the pelvic area and long term reported hypotensive episode.. 01/27 01:19 Patient has history of extensive pelvic fractures and pelvic hematoma.. sp4 01:19 Patient was seen here on 12/20/2024 for the fall at home, generalized weakness, sp4 extensive pelvic fractures, and pelvic hematoma. Patient was transferred to [facility] for evaluation by trauma surgery. Patient states [facility] elected conservative management.. Historical: - Allergies: 01/26 21:18 No Known Allergies; jj7 - PMHx: 21:18 Congestive heart failure; coronary atherosclerosis; diabetes mellitus; High jj7 Cholesterol; Hypertensive disorder; shingles (Hypertensive disord); - PSHx: 21:18 cardiac stents; jj7 - Immunization history:: Adult Immunizations up to date. - Infectious Disease History:: Denies. - Immunization history: Last tetanus immunization: unknown. - Social history:: Smoking status: Patient denies any tobacco usage or history of. Patient/guardian denies using alcohol, street drugs, IV drugs. - Family history:: not pertinent. ROS: 01/27 01:19 Constitutional: Negative for fever, chills, and weight loss, positive for acute fall at sp4 the long term, positive for pelvic pain, positive for reported hypotensive episode. All other systems are negative, Exam: 01:19 Constitutional: Frail elderly female, no acute distress, nonambulatory at this time, sp4 complaining of pelvic pain, vital signs are stable. Head/Face: Normocephalic, atraumatic. Eyes: Pupils equal round and reactive to light, extra-ocular motions intact. Lids and lashes normal. Conjunctiva and sclera are not injected. Cornea within normal limits. Periorbital areas with no swelling, redness, or edema. ENT: Nares patent. No nasal discharge, no septal abnormalities noted. Tympanic membranes are normal and external auditory canals are clear. Oropharynx with no redness, swelling, or masses, exudates, or evidence of obstruction, uvula midline. Mucous membranes moist. Neck: Trachea midline, no thyromegaly or masses palpated, and no cervical lymphadenopathy. Supple, full range of motion without nuchal rigidity, or vertebral point tenderness. Chest/axilla: Normal chest wall appearance and motion. Nontender with no deformity. No lesions are appreciated. Cardiovascular: Regular rate and rhythm with a normal S1 and S2. No gallops, murmurs, or rubs. No pulse deficits. Respiratory: Lungs have equal breath sounds bilaterally, clear to auscultation and percussion. No rales, rhonchi or wheezes noted. No increased work of breathing, no retractions or nasal flaring. Abdomen/GI: Soft, with normal bowel sounds. No distension or tympany. No guarding or rebound. No evidence of tenderness throughout. Back: No spinal tenderness. No costovertebral tenderness. Female : Normal external genitalia. Patient is incontinent of bladder. Skin: Warm, dry with normal turgor. Normal color with no rashes, no lesions, and no evidence of cellulitis. MS/ Extremity: Pulses equal, no cyanosis. Neurovascular intact. Full, normal range of motion. Neuro: Awake and alert, GCS 15, oriented to person, place, time, and situation. Cranial nerves II-XII grossly intact. Motor strength 5/5 in all extremities. Sensory grossly intact. Psych: Awake, alert, with orientation to person, place and time. Behavior, mood, and affect are within normal limits 01:19 ECG was reviewed by the Attending Physician. EKG at 2212 sinus rhythm with premature atrial contractions rate 78 otherwise unremarkable. Vital Signs: 01/26 21:14 BP 110 / 49; Pulse 73; Resp 17; Temp 97.6; Pulse Ox 100% on R/A; Weight 78.02 kg; jj7 Height 5 ft. 7 in. ; 22:15 BP 116 / 59; Pulse 85; Resp 20; Pulse Ox 100% on 3.5 lpm NC; kj2 23:57 BP 118 / 60; Pulse 90; Resp 18; Pulse Ox 100% on 3.5 lpm NC; kj2 01/27 00:25 BP 103 / 58; Pulse 94; Resp 18 S; Pulse Ox 99% on 3 lpm NC; ha1 01:50 BP 107 / 50; Pulse 96; Resp 15 S; Pulse Ox 99% on 3 lpm NC; ha1 01/26 21:14 Body Mass Index 26.94 (78.02 kg, 170.18 cm) jj7 Jennifer Coma Score: 01/26 21:30 Eye Response: spontaneous(4). Motor Response: obeys commands(6). Verbal Response: kj2 oriented(5). Total: 15. 01/27 01:19 Eye Response: spontaneous(4). Motor Response: obeys commands(6). Verbal Response: sp4 oriented(5). Total: 15. Trauma Score (Adult): 01/26 21:30 Eye Response: spontaneous(1); Verbal Response: oriented(1); Motor Response: obeys kj2 commands(2); Systolic BP: > 89 mm Hg(4); Respiratory Rate: 10 to 29 per min(4); Jennifer Score: 15; Trauma Score: 12 MDM: 21:29 Medical Screening Exam initiated sp4 22:12 Differential diagnosis: abrasion, closed head injury, contusion, fracture, multiple sp4 trauma, sprain, strain, Generalized weakness.. Data reviewed: vital signs, nurses notes, EMS record, long term records, old medical records, lab test result(s), EKG, radiologic studies, CT scan. Consideration of Admission/Observation Escalation of care including admission/observation considered. ED course: Patient has UTI, will treat with cefdinir. Patient has multiple healing pelvic fractures, this includes right superior pubic ramus, right inferior pubic ramus, left 3rd through 9th ribs, L3 subacute superior endplate compression fracture, and improving pelvic hematoma.. ED course: At this time stable for discharge back to long term with p.o. cefdinir. Also as needed tramadol.. 01/27 00:16 ED course: No evidence of acute intracranial abnormality. EXAM: CT of the cervical sp4 spine without contrast HISTORY: fall, pain COMPARISON: None TECHNIQUE: Multiple contiguous axial images were obtained in a CT of the cervical spine without contrast. Sagittal and coronal reformats were performed. FINDINGS: The vertebral bodies demonstrate normal height and alignment. No evidence of acute fracture or subluxation.. Mild degenerative changes are present. No prevertebral soft tissue swelling is seen. The posterior facets are well aligned. Normal alignment of the skull base with the cervical spine is seen. RADIOLOGY SERVICES REPORT The lung apices are unremarkable. IMPRESSION: No evidence of acute osseous abnormality of the cervical spine.. 00:18 ED course: CT- IMPRESSION: Healing fractures throughout the pelvis, stable since the sp4 prior CT. Bilateral healing rib fractures, and changes of partial healing of known humeral head fracture as well. Central superior endplate compression deformity at L3 of indeterminate age. Stable up to moderate left hydroureteronephrosis, without evidence of an obstructing calculus, could relate to retrograde reflux. A small air-fluid level is now noted within the distended urinary bladder, please correlate clinically for recent instrumentation. Other incidental findings as above. . 00:25 ED course: CT revealed - MUSCULOSKELETAL: Changes of partial healing with callus sp4 formation along the right pubic bone and junction with the superior and inferior pubic rami, as well as the mid aspect of the right inferior pubic ramus. Comminuted right sacral ala fractures also show signs of partial healing. Healing fractures along the anterior left third through ninth ribs, approximating the costochondral junctions along the lower ribs. Healing fractures also seen along the anterior right fourth through ninth ribs. Changes of partial fracture healing seen along the right humeral head is well, with displaced fragments. Central L3 superior endplate compression deformity of indeterminate age. ADDITIONAL FINDINGS: Partial improvement of soft tissue thickening and fat stranding along the right suprapubic space, suggestive of nonlocalized resolving hematoma. . 01/27 00:56 Order name: Basic Metabolic Panel; Complete Time: 01:24 EDMS 01/27 00:56 Order name: Liver (Hepatic) Function; Complete Time: 01:24 EDMS 01/27 00:56 Order name: Troponin High Sensitivity; Complete Time: 01:24 EDMS 08 00:56 Order name: NT PRO-BNP; Complete Time: 01:24 EDMS 01/27 00:57 Order name: Magnesium; Complete Time: 01:24 EDMS 01/27 00:57 Order name: Lactate w/ 2H reflex if indic.; Complete Time: 01:24 EDMS 01/27 00:57 Order name: CBC with Automated Diff; Complete Time: 01:24 EDMS 01/27 00:57 Order name: Protime (+INR); Complete Time: 01:24 EDMS 01/27 00:57 Order name: UA W/Microscopic; Complete Time: 01:24 EDMS 01/27 00:57 Order name: Blood Culture EDMS 01/27 00:57 Order name: Blood Culture EDMS 01/27 00:56 Order name: Head C Spine Mpr Wo Con; Complete Time: 01:24 EDMS 01/27 00:56 Order name: Chest Abd Pelvis Wo Con; Complete Time: 01:24 EDMS 01/26 21:16 Order name: EKG; Complete Time: 00:58 sp4 01/26 21:16 Order name: Cardiac monitoring; Complete Time: 21:51 sp4 01/26 21:16 Order name: EKG - Nurse/Tech; Complete Time: 22:15 sp4 01/26 21:16 Order name: IV Saline Lock; Complete Time: 21:51 sp4 01/26 21:16 Order name: Labs collected and sent; Complete Time: 21:51 sp4 01/26 21:16 Order name: O2 Per Protocol; Complete Time: 21:51 sp4 01/26 21:16 Order name: O2 Sat Monitoring; Complete Time: 21:51 sp4 EC/20 22:12 Rate is 78 beats/min. Rhythm is regular, Normal Sinus Rhythm with PACs. QRS [place] is sp4 Normal. [place] interval is normal. QRS interval is normal. QT interval is normal. No Q waves. T waves are Normal. No ST changes noted. Clinical impression: No evidence of ischemia. Interpreted by me. Reviewed by me. Administered Medications: 21:46 Drug: fentaNYL (PF) IVP 25 mcg IVP once Route: IVP; Site: right antecubital; kj2 22:00 Follow up: Response: No adverse reaction; Marked relief of symptoms; Pain is decreased; ha1 RASS: Alert and Calm (0) 21:46 Drug: Ondansetron IVP 4 mg IVP once; over 2 minutes Route: IVP; Site: right antecubital;kj2 22:00 Follow up: Response: No adverse reaction; Marked relief of symptoms ha1 22:08 Drug: NS 0.9% IV 1000 ml IV at 125 ml/hr once; to be given as a bolus over 60 minutes kj2 Route: IV; Rate: 125 ml/hr; Site: left hand; 01/27 02:30 Follow up: Response: No adverse reaction; IV Status: Completed infusion; IV Intake: ha1 500ml 01:00 Drug: Cephalexin PO 500 mg PO once Route: PO; ha1 01:30 Follow up: Response: No adverse reaction ha1 01:00 Drug: Fluconazole PO 200 mg PO once Route: PO; ha1 01:30 Follow up: Response: No adverse reaction ha1 Disposition: 00:26 Chart complete. sp4 Disposition Summary: 01/27/25 00:23 Discharge Ordered Notes: Location: Home sp4 Problem: new sp4 Symptoms: have improved sp4 Condition: Stable sp4 Diagnosis - Acute UTI, acute fall at the long term, acute pelvic contusion. Subacute sp4 Healing pelvic fractures, - Subacute L3 superior endplate compression fracture. sp4 Followup: sp4 - With: Private Physician - When: 7 - 10 days - Reason: Recheck today's complaints Discharge Instructions: - Discharge Summary Sheet sp4 - Constipation, Adult, [id number] sp4 - Urinary Tract Infection, Adult, [id number] sp4 Forms: - Patient Portal Instructions sp4 Prescriptions: - cefdinir 300 mg Oral capsule - take 2 capsule ORAL route every 12 hours for 10 days; 20 capsule; Refills: 0, sp4 Product Selection Permitted - glycerin (adult) suppository - insert 1 suppository RECTAL route daily for 10 days daily for constipation; 12 sp4 suppository; Refills: 0, Product Selection Permitted - Zofran 4 mg Oral tablet - take 1 tablet ORAL route every 12 hours As needed PRN pain; 30 tablet; Refills: sp4 0, Product Selection Permitted - Tramadol 50 mg Oral tablet - take 1 tablet ORAL route every 8 hours as needed; 30 tablet; Refills: 0, sp4 Product Selection Permitted Signatures: Dispatcher [employer] EDNicky Trujillo RN RN ha1 Elodia Carey RN RN jj7 Goran Novoa MD MD sp4 Giuliana Santos RN RN kj2 Corrections: (The following items were deleted from the chart) 00:56 00:56 Head C Spine Cap Wo Con ordered. EDMS EDMS 01:04 00:58 Chest Abdomen Pelvis Wo Con+CT.RAD.BRZ ordered. EDMS EDMS 01:04 00:58 Head C Spine MPR Wo Con+CT.RAD.BRZ ordered. EDMS EDMS 01:12 00:58 CBC+H.LAB.BRZ ordered. EDMS EDMS 01:12 00:58 PROTIME (+INR)+COAG.LAB.BRZ ordered. EDMS EDMS 01: 00:58 BASIC METABOLIC PANEL+C.LAB.BRZ ordered. EDMS EDMS 01: 00:58 HEPATIC FUNCTION+C.LAB.BRZ ordered. EDMS EDMS 01: 00:58 MAGNESIUM+C.LAB.BRZ ordered. EDMS EDMS 01: 00:58 PROBNP+C.LAB.BRZ ordered. EDMS EDMS 01: 00:58 Troponin High Sensitivity+C.LAB.BRZ ordered. EDMS EDMS 01: 00:58 BLOOD CULTURE*+BA.LAB.BRZ ordered. EDMS EDMS 01:13 00:58 UA W/ Microscopic+U.LAB.BRZ ordered. EDMS EDMS 01:13 00:58 LACTATE+C.LAB.BRZ ordered. EDMS EDMS
[2025-01-27] MEDS ORDERED: CEPHALEXIN 250 MG CAP ONE (01:14)
[2025-01-27] MEDS ORDERED: FLUCONAZOLE 100 MG TAB ONE (01:15)
[2025-01-27 07:09] VITALS: TEMP 97.6
[2025-01-27 07:14] VITALS: O2SAT 99
[2025-01-27 07:16] VITALS: BP 107/50
== END 2025-01-27 02:32 | disposition home or self-care (01) ==
LOC: ER 20:38
DX: N39.0 Urinary tract infection, site not specified (principal); S30.0XXA Contusion of lower back and pelvis, initial encounter; S32.9XXD Fracture of unspecified parts of lumbosacral spine and pelvis, subsequent encounter for fracture with routine healing; S32.030A Wedge compression fracture of third lumbar vertebra, initial encounter for closed fracture; W06.XXXA Fall from bed, initial encounter; Y92.122 Bedroom in nursing home as the place of occurrence of the external cause; Z95.818 Presence of other cardiac implants and grafts; Z79.01 Long term (current) use of anticoagulants
CPT/HCPCS: 96361; 93005; 87040 ×2; 85025; 81001; 80048; 36415; 83735; 85610; 80076; 83605; 84484; 83880; 70450; 71250; 72125; 74176; 96375; 96374; 99285; J3010; J2405; J7030

== ENCOUNTER 2025-01-29 19:52 | Emergency (ER) | payer OTHER ==
--- NOTE | 2025-01-29 20:54 | RAD REPORT ---
EXAM: Chest Single View HISTORY: 69 years Female COUGH COMPARISON: 12/19/2024 FINDINGS: LUNGS/PLEURA: The lungs are clear. No pleural effusions or pneumothorax. No pulmonary edema. CARDIAC/MEDIASTINUM: The cardiac silhouette is within normal limits. UPPER ABDOMEN: No significant abnormality. BONES: No acute abnormality. LINES/TUBES/OTHER: N/A IMPRESSION: No evidence of acute cardiopulmonary disease. No significant change from prior.
[2025-01-29] MEDS ORDERED: NA CHLORIDE 0.9% 1,000 ML ONE (21:27)
[2025-01-29] MEDS ORDERED: PANTOPRAZOLE 40 MG INJ ONE (21:27)
[2025-01-29] MEDS ORDERED: NA CHLORIDE 0.9% 250 ML ONE (21:27)
[2025-01-29] MEDS ORDERED: ONDANSETRON 4 MG/2 ML VIAL ONE (21:27)
--- NOTE | 2025-01-29 21:29 | EDPHYS ---
Physician Documentation [facility] Name: Namrata Steinberg Age: 69 yrs Sex: Female : 1955 Arrival Date: 01/29/2025 Time: 19:52 Bed 3 Private MD: ED Physician Cr Stevenson HPI: 01/29 21:20 This 69 yrs old Female presents to ER via Wheelchair with complaints of jagdish Nausea/Vomiting, Weakness, Patient states that vomit is black. 21:20 The patient presents to the emergency department with nausea, vomiting. jagdish Historical: - Allergies: 20:23 No Known Allergies; cp4 - Home Meds: 20:23 Entresto oral [Active]; Jardiance oral [Active]; Lipitor Oral [Active]; metoprolol cp4 [Active]; Plavix 75 mg Oral tablet 1 tab daily [Active]; - PMHx: 20:23 Congestive heart failure; coronary atherosclerosis; diabetes mellitus; High cp4 Cholesterol; Hypertensive disorder; shingles (Hypertensive disord); - PSHx: 20:23 cardiac stents; cp4 - Immunization history:: Adult Immunizations up to date. - Infectious Disease History:: Denies. - Social history:: Smoking status: Patient denies any tobacco usage or history of. ROS: 21:20 Constitutional: Negative for fever, chills, and weight loss, Eyes: Negative for injury, jagdish pain, redness, and discharge, ENT: Negative for injury, pain, and discharge, Neck: Negative for injury, pain, and swelling, Cardiovascular: Negative for chest pain, palpitations, and edema, Respiratory: Negative for shortness of breath, cough, wheezing, and pleuritic chest pain, Back: Negative for injury and pain, : Negative for injury, bleeding, discharge, and swelling, MS/Extremity: Negative for injury and deformity, Neuro: Negative for headache, weakness, numbness, tingling, and seizure, Psych: Negative for depression, anxiety, suicide ideation, homicidal ideation, and hallucinations, Allergy/Immunology: Negative for hives, rash, and allergies, Endocrine: Negative for neck swelling, polydipsia, polyuria, polyphagia, and marked weight changes, Hematologic/Lymphatic: Negative for swollen nodes, abnormal bleeding, and unusual bruising, 21:20 Abdomen/GI: Positive for abdominal pain, nausea and vomiting, abdominal cramps, hematemesis, 21:20 Skin: Positive for pallor, Exam: 21:20 Constitutional: This is a well developed, well nourished patient who is awake, alert, jagdish and in no acute distress. Head/Face: Normocephalic, atraumatic. Eyes: Pupils equal round and reactive to light, extra-ocular motions intact. Lids and lashes normal. Conjunctiva and sclera are non-icteric and not injected. Cornea within normal limits. Periorbital areas with no swelling, redness, or edema. ENT: Nares patent. No nasal discharge, no septal abnormalities noted. Tympanic membranes are normal and external auditory canals are clear. Oropharynx with no redness, swelling, or masses, exudates, or evidence of obstruction, uvula midline. Mucous membranes moist. Neck: Trachea midline, no thyromegaly or masses palpated, and no cervical lymphadenopathy. Supple, full range of motion without nuchal rigidity, or vertebral point tenderness. No Meningismus. Chest/axilla: Normal chest wall appearance and motion. Nontender with no deformity. No lesions are appreciated. Cardiovascular: Regular rate and rhythm with a normal S1 and S2. No gallops, murmurs, or rubs. Normal PMI, no JVD. No pulse deficits. Respiratory: Lungs have equal breath sounds bilaterally, clear to auscultation and percussion. No rales, rhonchi or wheezes noted. No increased work of breathing, no retractions or nasal flaring. Back: No spinal tenderness. No costovertebral tenderness. Full range of motion. Female : Normal external genitalia. MS/ Extremity: Pulses equal, no cyanosis. Neurovascular intact. Full, normal range of motion., bilateral aka Neuro: Awake and alert, GCS 15, oriented to person, place, time, and situation. Cranial nerves II-XII grossly intact. Motor strength 5/5 in all extremities. Sensory grossly intact. Cerebellar exam normal. Normal gait. Psych: Awake, alert, with orientation to person, place and time. Behavior, mood, and affect are within normal limits. 21:20 ECG was reviewed by the Attending Physician. 21:20 Abdomen/GI: Inspection: abdomen appears normal, Bowel sounds: normal, Palpation: soft, Rectal exam: is unremarkable, rectal tone normal, swelling, is not appreciated, tenderness, is not appreciated, Liver: no appreciated palpable abnormalities, Hernia: not appreciated, 21:20 Musculoskeletal/extremity: Extremities: all appear grossly normal, with no appreciated pain with palpation, ROM: no acute changes, Circulation is intact in all extremities. Sensation intact. Compartment Syndrome exam of affected extremity: is normal. DVT Exam: No signs of deep vein thrombosis. no pain, no swelling, no tenderness, negative Homans' sign noted on exam, no appreciated bluish discoloration, no erythema, no increased warmth, 21:20 Skin: Appearance: Color: normal in color, Temperature: normal temperature, abscess, not appreciated, cellulitis, is not appreciated, induration, is not appreciated, no rash present. Turgor: is excellent, Vital Signs: 20:22 BP 145 / 69; Pulse 96; Resp 18; Temp 97.4; Pulse Ox 95% ; Weight 78.02 kg; Height 5 ft. cp4 7 in. ; Pain 0/10; 22:00 BP 143 / 68; Pulse 92; Resp 18; Pulse Ox 96% ; cp4 23:49 BP 138 / 57; Pulse 94; Resp 18; Pulse Ox 95% ; cp4 01/30 01:12 BP 113 / 61; Pulse 93; Resp 18; Pulse Ox 95% ; cp4 01/29 20:22 Body Mass Index 26.94 (78.02 kg, 170.18 cm) 4 01/29 20:22 Pain Scale: Adult cp4 NIH Stroke Scale Scores: 01/29 21:20 NIHSS Score: 0 [facility] MDM: 19:59 Medical Screening Exam initiated [facility] 21:24 Differential diagnosis: Nonspecific abd pain, gastritis, cholecystitis, pancreatitis, jagdish appendicitis, diverticulitis, viral gastroenteritis, gastroenteritis. Data reviewed: vital signs, nurses notes, lab test result(s), EKG, radiologic studies, CT scan, plain films. Consideration of Admission/Observation Patient was admitted/placed on observation. Escalation of care including admission/observation considered. I considered the following discharge prescriptions or medication management in the emergency department Medications were administered in the Emergency Department. See MAR. Independent interpretation of the following test(s) in the Emergency Department EKG: See my EKG interpretation above. Test considered but Not performed: Ultrasound no abd usg. Historians other than the Patient: Spouse/Significant Other: well informed. Care significantly affected by the following chronic conditions: Diabetes, Hypertension, Congestive Heart Failure, Obesity, cad. Counseling: I had a detailed discussion with the patient and/or guardian regarding the historical points, exam findings, and any diagnostic results supporting the discharge/admit diagnosis, lab results, radiology results, the need to transfer to another facility, for higher level of care, [facility] does not immediately have the required specialist. 01/29 20:00 Order name: Basic Metabolic Panel; Complete Time: 22:37 [facility] 01/29 20:00 Order name: CBC with Diff; Complete Time: 21:56 [facility] 01/29 20:00 Order name: LFT's; Complete Time: 22:37 [facility] 01/29 20:00 Order name: Magnesium; Complete Time: 22:37 [facility] 01/29 20:00 Order name: NT PRO-BNP; Complete Time: 22:37 [facility] 01/29 20:00 Order name: PT-INR; Complete Time: 22:00 [facility] 01/29 20:00 Order name: Troponin HS; Complete Time: 22:37 [facility] 01/29 20:00 Order name: Lipase; Complete Time: 22:37 [facility] 01/29 20:01 Order name: Type And Screen; Complete Time: 22:58 [facility] 01/29 20:00 Order name: XRAY Chest (1 view); Complete Time: 21:56 [facility] 01/29 21:20 Order name: CT Chest Abdomen Pelvis W/O Contrast [facility] 01/29 20:00 Order name: Cardiac monitoring; Complete Time: 21:54 [facility] 01/29 20:00 Order name: EKG - Nurse/Tech; Complete Time: 21:54 [facility] 01/29 20:00 Order name: IV Saline Lock; Complete Time: 21:20 [facility] 01/29 20:00 Order name: Labs collected and sent; Complete Time: 21:53 [facility] 01/29 20:00 Order name: O2 Per Protocol; Complete Time: 21:20 [facility] 01/29 20:00 Order name: O2 Sat Monitoring; Complete Time: 21:20 [facility] 01/29 20:00 Order name: IV Saline Lock - Large Bore; Complete Time: 21:20 [facility] 01/29 21:53 Order name: Misc. Order: light green top recollect; Complete Time: 22:04 vk EC:20 Rate is 87 beats/min. Rhythm is regular. QRS [place] is Normal. NV interval is normal. QRS jagdish interval is normal. QT interval is normal. No Q waves. T waves are Normal. No ST changes noted. Clinical impression: NSR w/ Non-specific ST/T Changes and No evidence of ischemia. Interpreted by me. Reviewed by me. Administered Medications: 21:53 Drug: NS 0.9% IV 1000 ml IV at 1000 ml once; to be given as a bolus over 60 minutes dd2 Route: IV; Rate: 1000 ml; Site: right antecubital; 23:35 Follow up: IV Status: Completed infusion 4 21:53 Drug: Pantoprazole IVP 80 mg IVP once Route: IVP; Site: right antecubital; dd2 21:59 Follow up: Response: No adverse reaction 4 21:53 Drug: Pantoprazole IV 8 mg/hr IV at 25 ml/hr continuous; (Standard dilution is 80 mg in dd2 250 mL NS) Route: IV; Rate: 25 ml/hr; Site: right antecubital; 01/30 01:41 Follow up: IV Status: Infusion continued upon transfer [facility] 01/29 21:53 Drug: Ondansetron IVP 8 mg IVP once; over 2 minutes Route: IVP; Site: right antecubital;dd2 21:59 Follow up: Response: No adverse reaction [facility] Disposition Summary: 01/29/25 21:28 Transfer Ordered Notes: Transfer Location: [facility] jagdish Reason: Higher level of care jagdish Condition: Fair jagdish Problem: new jagdish Symptoms: have improved jagdish Accepting Physician: to [facility](01/30/25 01:41) 4 Diagnosis - GI Bleed/ Gastrointestinal hemorrhage, unspecified - UPPER jagdish - Nausea jagdish - Weakness jagdish - Hypokalemia jagdish - Abnormal levels of other serum enzymes - Troponin 80 jagdish Forms: - Medication Reconciliation Form jagdish - SBAR form jagdish NIH Stroke Scale - NIH Stroke Score Date: 01/29/2025 Time: 21:20 Total Score = 0 10. Dysarthria (speech clarity - read or repeat words) - 0(Normal) 11. Extinction and Inattention (visual/tactile/auditory/spatial/personal) - 0(No abnormality) 1a. Level of Consciousness (LOC) - 0(Alert) 1b. Level of Consciousness (LOC) (Month \T\ Age) - 0(Both) 1c. LOC Commands (Open \T\ Closes Eyes/Hospice Social Worker) - 0(Both) 2. Best Gaze (Lateral Gaze Paresis) - 0(Normal) 3. Visual Field Loss - 0(No visual loss) 4. Facial Palsy - 0(Normal) 5a. Left Arm: Motor (10-second hold) - 0(No drift) 5b. Right Arm: Motor (10-second hold) - 0(No drift) 6a. Left Leg: Motor (5-second hold - always test supine) - 0(No drift) 6b. Right Leg: Motor (5-second hold - always test supine) - 0(No drift) 7. Limb Ataxia (finger/nose \T\ heel/ramos - test with eyes open) - 0(Absent) 8. Sensory Loss (pinprick arms/legs/face) - 0(Normal) 9. Best Language: Aphasia (description/naming/reading) - 0(No aphasia) Initials: jagdish Signatures: Dispatcher [employer] EDMS Cr Stevenson MD MD cha Potter, Christina cp4 Tayla Dougherty DIANA, RN RN dd2 Corrections: (The following items were deleted from the chart) 20:01 20:01 BASIC METABOLIC PANEL+C.LAB.BRZ ordered. EDMS EDMS 20:01 20:01 CBC+H.LAB.BRZ ordered. EDMS EDMS 20:01 20:01 HEPATIC FUNCTION+C.LAB.BRZ ordered. EDMS EDMS 20:01 20:01 MAGNESIUM+C.LAB.BRZ ordered. EDMS EDMS 20:01 20:01 PROBNP+C.LAB.BRZ ordered. EDMS EDMS 20:01 20:01 PROTIME (+INR)+COAG.LAB.BRZ ordered. EDMS EDMS 20:01 20:01 Troponin High Sensitivity+C.LAB.BRZ ordered. EDMS EDMS 20:01 20:01 LIPASE+C.LAB.BRZ ordered. EDMS EDMS 20:01 20:01 UA Rfx Erich Cult if indicated+U.LAB.BRZ ordered. EDMS EDMS 20:01 20:01 Chest Single View+RAD.RAD.BRZ ordered. EDMS EDMS 20:02 20:02 TYPE AND SCREEN+BB.LAB.BRZ ordered. EDMS EDMS 23:01 21:28 to [facility] jagdish jagdish 23: 23:01 [facility] jagdish jagdish 01/30 01:41 01/29 23:01 to [facility] cp4
--- NOTE | 2025-01-29 21:29 | ER ---
Nurse's Notes [facility] Name: Namrata Steinberg Age: 69 yrs Sex: Female : 1955 Arrival Date: 01/29/2025 Time: 19:52 Bed 3 Private MD: Diagnosis: GI Bleed/ Gastrointestinal hemorrhage, unspecified-UPPER;Nausea;Weakness;Hypokalemia;Abnormal levels of other serum enzymes-Troponin 80 Presentation: 01/29 20:22 Chief complaint: Patient states: vomiting black since this morning. Coronavirus screen: cp4 Client denies travel out of the [place] in the last 14 days. At this time, the client does not indicate any symptoms associated with coronavirus-19. Ebola Screen: Patient negative for fever greater than or equal to 101.5 degrees Fahrenheit, and additional compatible Ebola Virus Disease symptoms Patient denies exposure to infectious person. Patient denies travel to an Ebola-affected area in the 21 days before illness onset. No symptoms or risks identified at this time. Initial Sepsis Screen: Does the patient meet any 2 criteria? HR > 90 bpm. No. Patient's initial sepsis screen is negative. Does the patient have a suspected source of infection? No. Patient's initial sepsis screen is negative. Risk Assessment: Do you want to hurt yourself or someone else? Patient reports no desire to harm self or others. Onset of symptoms was January 29, 2025. 20:22 Method Of Arrival: Wheelchair cp4 20:22 Acuity: SANDOVAL 3 cp4 Triage Assessment: 20:23 General: Appears in no apparent distress. uncomfortable, Behavior is calm, cooperative, cp4 appropriate for age. Pain: Denies pain. GI: Reports nausea, vomiting. Historical: - Allergies: 20:23 No Known Allergies; cp4 - Home Meds: 20:23 Entresto oral [Active]; Jardiance oral [Active]; Lipitor Oral [Active]; metoprolol cp4 [Active]; Plavix 75 mg Oral tablet 1 tab daily [Active]; - PMHx: 20:23 Congestive heart failure; coronary atherosclerosis; diabetes mellitus; High cp4 Cholesterol; Hypertensive disorder; shingles (Hypertensive disord); - PSHx: 20:23 cardiac stents; cp4 - Immunization history:: Adult Immunizations up to date. - Infectious Disease History:: Denies. - Social history:: Smoking status: Patient denies any tobacco usage or history of. Screenin/24 01:38 [facility] ED Fall Risk Assessment (Adult) History of falling in the last 3 months, cp4 including since admission No falls in past 3 months (0 pts) Confusion or Disorientation No (0 pts) Intoxicated or Sedated No (0 pts) Impaired Gait Yes (1 pt) Mobility Assist Device Used No (0 pt) Altered Elimination No (0 pt) Score/Fall Risk Level 0 - 2 = Low Risk Oriented to surroundings, Maintained a safe environment, Assessed \T\ reinforced patient's understanding of fall precautions, Hourly rounding (assess needs \T\ fall precautionary measures) done. Abuse screen: Denies threats or abuse. Denies injuries from another. Nutritional screening: No deficits noted. Tuberculosis screening: No symptoms or risk factors identified. Never had TB. Assessment: 01/29 21:55 General: Appears in no apparent distress. uncomfortable, Behavior is calm, cooperative, dd2 appropriate for age. Pain: Complains of pain in left supraorbital ridge and left upper eyelid Pain currently is 5 out of 10 on a pain scale. Neuro: No deficits noted. Cardiovascular: No deficits noted. Respiratory: No deficits noted. GI: Abdomen is non-distended, Bowel sounds present X 4 quads. Abd is soft and non tender X 4 quads. Reports nausea, vomiting, VOMITING BLOOD. : No deficits noted. No signs and/or symptoms were reported regarding the genitourinary system. EENT: No deficits noted. No signs and/or symptoms were reported regarding the EENT system. Derm: Rash noted that is itchy, red, on left supraorbital ridge and left upper eyelid PAINFUL. Musculoskeletal: No deficits noted. 23:00 Reassessment: Patient appears in no apparent distress at this time. No changes from cp4 previously documented assessment. Patient and/or family updated on plan of care and expected duration. Pain level reassessed. Patient is alert, oriented x 3, equal unlabored respirations, skin warm/dry/pink. Vital Signs: 20:22 BP 145 / 69; Pulse 96; Resp 18; Temp 97.4; Pulse Ox 95% ; Weight 78.02 kg; Height 5 ft. cp4 7 in. ; Pain 0/10; 22:00 BP 143 / 68; Pulse 92; Resp 18; Pulse Ox 96% ; cp4 23:49 BP 138 / 57; Pulse 94; Resp 18; Pulse Ox 95% ; cp4 01/30 01:12 BP 113 / 61; Pulse 93; Resp 18; Pulse Ox 95% ; cp4 01/29 20:22 Body Mass Index 26.94 (78.02 kg, 170.18 cm) cp4 01/29 20:22 Pain Scale: Adult cp4 NIH Stroke Scale Scores: 01/29 21:20 NIHSS Score: 0 jagdish ED Course: 19:54 Patient arrived in ED. [id number] 19:59 Cr Stevenson MD is Attending Physician. jagdish 20:23 Triage completed. cp4 20:23 Arm band placed on right wrist. Patient placed in waiting room. cp4 20:44 XRAY Chest (1 view) In Process Unspecified. EDMS 21:19 Basic Metabolic Panel Sent. vc1 21:19 CBC with Diff Sent. vc1 21:20 LFT's Sent. vc1 21:20 Magnesium Sent. vc1 21:20 Troponin HS Sent. vc1 21:20 NT PRO-BNP Sent. vc1 21:20 Lipase Sent. vc1 21:42 Accessed peripheral vein via ultrasound, utilizing dynamic ultrasound technique using vc1 per hospital protocol. Clean \T\ dry. Dressing intact. Good blood return. Flushes easily. 20G long to right upper arm. 21:45 Type And Screen Sent. dd2 21:45 Lipase Sent. dd2 21:45 Basic Metabolic Panel Sent. dd2 21:45 LFT's Sent. dd2 21:45 Magnesium Sent. dd2 21:45 NT PRO-BNP Sent. dd2 21:45 PT-INR Sent. dd2 21:45 Troponin HS Sent. dd2 21:45 Initial lab(s) drawn, by me, sent to lab. Inserted saline lock: 22 gauge in left hand, dd2 using aseptic technique. Blood collected. Flushed with 10 mL NS. 21:54 EKG done, by ED staff, reviewed by Cr Stevenson MD. dd2 22:04 Lyudmila De Los Santos is Primary Nurse. cp4 22:32 CT Chest Abdomen Pelvis W/O Contrast In Process Unspecified. EDMS 01/30 01:38 Bed in low position. Call light in reach. Side rails up X2. Provided Education on: cp4 transfer for GI. 01:38 No provider procedures requiring assistance completed. Patient transferred, IV remains cp4 in place. 02:19 initiated with BS spoke with Bryce. patient was accepted to [facility] to Dr. Bernardo vk \T\2300, accepting admin Gopi P \T\2326 to [facility] to transport. Administered Medications: 01/29 21:53 Drug: NS 0.9% IV 1000 ml IV at 1000 ml once; to be given as a bolus over 60 minutes dd2 Route: IV; Rate: 1000 ml; Site: right antecubital; 23:35 Follow up: IV Status: Completed infusion cp4 21:53 Drug: Pantoprazole IVP 80 mg IVP once Route: IVP; Site: right antecubital; dd2 21:59 Follow up: Response: No adverse reaction cp4 21:53 Drug: Pantoprazole IV 8 mg/hr IV at 25 ml/hr continuous; (Standard dilution is 80 mg in dd2 250 mL NS) Route: IV; Rate: 25 ml/hr; Site: right antecubital; 01/30 01:41 Follow up: IV Status: Infusion continued upon transfer cp4 01/29 21:53 Drug: Ondansetron IVP 8 mg IVP once; over 2 minutes Route: IVP; Site: right antecubital;dd2 21:59 Follow up: Response: No adverse reaction cp4 Medication: 01/30 01:38 VIS not applicable for this client. cp4 Outcome: 01/29 21:28 ER care complete, transfer ordered by MD. dubon 01/30 01:38 Transferred by ground EMS to [facility], Transfer form completed. cp4 X-rays sent w/ patient. Condition: stable Instructed on the need for transfer, 01:41 Patient left the ED. cp4 NIH Stroke Scale - NIH Stroke Score Date: 01/29/2025 Time: 21:20 Total Score = 0 10. Dysarthria (speech clarity - read or repeat words) - 0(Normal) 11. Extinction and Inattention (visual/tactile/auditory/spatial/personal) - 0(No abnormality) 1a. Level of Consciousness (LOC) - 0(Alert) 1b. Level of Consciousness (LOC) (Month \T\ Age) - 0(Both) 1c. LOC Commands (Open \T\ Closes Eyes/Supervisor Sterile Processing) - 0(Both) 2. Best Gaze (Lateral Gaze Paresis) - 0(Normal) 3. Visual Field Loss - 0(No visual loss) 4. Facial Palsy - 0(Normal) 5a. Left Arm: Motor (10-second hold) - 0(No drift) 5b. Right Arm: Motor (10-second hold) - 0(No drift) 6a. Left Leg: Motor (5-second hold - always test supine) - 0(No drift) 6b. Right Leg: Motor (5-second hold - always test supine) - 0(No drift) 7. Limb Ataxia (finger/nose \T\ heel/ramos - test with eyes open) - 0(Absent) 8. Sensory Loss (pinprick arms/legs/face) - 0(Normal) 9. Best Language: Aphasia (description/naming/reading) - 0(No aphasia) Initials: jagdish Signatures: Dispatcher [employer] Cr Goddard MD MD cha Jeffries, Jennifer [id number] Leticia Hernandez, RN RN 1 Lyudmila De Los Santos cp4 Tayla Dougherty DIANA RN RN dd2
[2025-01-29 21:32] LABS: Absolute Lymphocytes (CBC) 1.6 K/uL (0.7-4.9); Hematocrit 41.6 % (36.0-45.0); Hemoglobin 13.6 g/dL (12.0-15.0); MCH 30.9 pg (27.0-35.0); MCHC 32.7 g/dL (32.0-36.0); MCV 94.8 fL (80-100); MPV 6.8 fL (7.6-11.3); Nucleated RBC Absolute Count 0.0 (0-0); Nucleated Red Blood Cells % 0.0 % (0-0); RBC Red Blood Cell Count 4.38 M/uL (3.86-4.86); White Blood Count 13.10 thou/uL (4.3-10.9)
[2025-01-29 21:56] LABS: PT Prothrombin Time 14.2 SECONDS (10-13.0); Protime INR 1.27
[2025-01-29 22:33] LABS: AST/SGOT 16 U/L (15-37); Albumin 2.2 g/dL (3.4-5.0); Albumin/Globulin Ratio 0.6 (1.1-1.8); Alkaline Phosphatase 183 U/L (45-117); Anion Gap 15.4 mEq/L (5.0-15.0); BUN Blood Urea Nitrogen 28 mg/dL (7-18); Bilirubin Indirect, Calculated 0.4 mg/dL (0.2-0.8); Globulin 3.7 g/dL (2.3-3.5); Glucose Level 161 mg/dL (74-106); Lipase 9 U/L (13-75); Magnesium 1.9 mg/dL (1.6-2.4); NT PRO-BNP 1464 pg/mL (<125); Potassium 3.4 mEq/L (3.5-5.1)
[2025-01-29 22:35] LABS: ALT/SGPT < 14 U/L (13-56)
[2025-01-29 22:36] LABS: Troponin High Sensitivity 80.5 pg/mL (<58.9)
--- NOTE | 2025-01-29 23:36 | RAD REPORT ---
INDICATION: Congestion;Pain COMPARISON: CT chest abdomen pelvis January 26, 2025 TECHNIQUE: Unenhanced CT of the chest, abdomen, and pelvis was performed per protocol. Multiplanar reconstructio ns were provided. Dose reduction techniques were utilized for this exam including automated exposure control, adjustmen ts to mA and/or kV according to patient's size, and the use of iterative reconstruction techniques. FINDINGS: Lack of intravenous contrast limits evaluation of the viscera and vasculature. CHEST: HEART: Normal in size. Multivessel coronary arterial calcifications. No pericardial effusion or thick ening. AORTA: Scattered atherosclerosis throughout the thoracic aorta without aneurysmal dilatation. ADENOPATHY: No pathologic intrathoracic or axillary adenopathy. LUNGS: Linear atelectasis within the right middle lobe and bilateral lower lobes. No focal consolidat ion. No pleural effusion or pneumonia or atelectasis. ABDOMEN / PELVIS: LIVER: Diffuse hepatic steatosis. No focal lesions seen. SPLEEN: Unremarkable. PANCREAS: Unremarkable. ADRENALS: Unremarkable. KIDNEYS: Mild bilateral hydroureteronephrosis, greater on the left. GALLBLADDER: Cholelithiasis without evidence of cholecystitis. VESSELS: Scattered atherosclerotic plaque within the abdominal aorta and iliac vessels without aneury smal dilatation. BOWEL: Large amount of stool within the rectal vault with mild rectal wall thickening and presacral i nflammatory stranding. Diffusely fluid-filled thoracic esophagus with mild wall thickening. No bowel obstruction. APPENDIX: No pericecal inflammatory changes to suggest appendicitis. FLUID: No free fluid or abnormal fluid collection. ADENOPATHY: No pathologic adenopathy. BLADDER: Distended with small amount of hyperdense material within the dependent portion of the bladd er. Small amount of air within the bladder. PELVIS: Uterus and adnexa are unremarkable. BONES: Redemonstration of comminuted fractures of the right sacral ala as well as the right superior and inferior pubic rami. The fractured pubic ramus closely abuts the inferior aspect of the bladder, similar to prior exam. Redemonstration of superior endplate compression deformity of L3. Red emonstration of partially visualized fracture of the right humeral head and neck. Remote bilateral rib fractures. Multilevel degenerative changes throughout the spine. SOFT TISSUES: Unremarkable. IMPRESSION: 1. Large amount of stool within the rectal vault with findings of rectal fecal impaction. 2. Diffusely fluid-filled thoracic esophagus with mild wall thickening, suggesting reflux esophagit is. 3. Distended urinary bladder with mild bilateral hydroureteronephrosis, greater on the left. 4. Small amount of hyperdense material within the dependent portion of the bladder, possibly relate d to blood products or debris.. Recommend correlation with urinalysis. 5. Small amount of air within the bladder, possibly related to recent instrumentation or catheteriz ation. 6. Redemonstration of comminuted fractures of the right sacral ala, right superior and inferior pub ic rami, superior endplate compression deformity of L3 and partially visualized fracture of the right humeral head and neck. 7. Hepatic steatosis. 8. Cholelithiasis without evidence of cholecystitis. Electronically signed by: Trae Hughes DO 01/29/2025 11:32 PM CDT RP NR Due to temporary technical issues with the [employer] reporting system, reports are being mahesh d by the in-house radiologist without review as a courtesy to ensure prompt reporting the interpreting radiologist is fully responsible for the content of the report. Transcribed Date/Time: 01/29/2025 11:36 PM
[2025-01-30 01:45] VITALS: TEMP 97.4
[2025-01-30 01:48] VITALS: O2SAT 95
[2025-01-30 01:50] VITALS: BP 113/61
== END 2025-01-30 01:41 | disposition short-term general hospital (02) ==
LOC: ER 19:52
DX: K92.2 Gastrointestinal hemorrhage, unspecified (principal); R11.0 Nausea; R53.1 Weakness; E87.6 Hypokalemia; R79.89 Other specified abnormal findings of blood chemistry; I50.9 Heart failure, unspecified; I10 Essential (primary) hypertension; E11.9 Type 2 diabetes mellitus without complications; Z95.818 Presence of other cardiac implants and grafts; Z79.01 Long term (current) use of anticoagulants
CPT/HCPCS: 96365; 93005; 85025; 80048; 36415; 86900; 83735; 86850; 85610; 86901; 80076; 84484; 83690; 83880; 71250; 74176; 71045; 96375; 99285; 96366; J2470; J2405; J7050; J7030